=== PATIENT | female | born 1955 | race Caucasian/White ===

== ENCOUNTER 2022-06-27 21:55 | Inpatient (IN) | payer MEDICARE, OTHER, SELFPAY ==
[2022-06-27 21:56] VITALS: BP 141/97; PULSE 89; RESP 20; TEMP 36.2; O2SAT 95; BMI 33.4
[2022-06-27] MEDS: Ondansetron 4 MG/2 ML Vial IV (22:21)
[2022-06-27] MEDS: HYDROmorphone 1 MG/ML Syringe IV (22:22)
--- NOTE | 2022-06-27 22:30 | RAD_ITS ---
EXAM: XR CHEST, 1 VIEW CLINICAL INDICATION: Surgical clearance TECHNIQUE: Frontal view of the chest. This report was created using [employer] report generation technology. COMPARISON: None. FINDINGS: LUNGS AND PLEURAL SPACES: Unremarkable. No consolidation or edema. No pneumothorax. No effusion. HEART: Unremarkable. Cardiac silhouette not enlarged. MEDIASTINUM: Central airways and mediastinal contour are unremarkable. BONES/JOINTS: Unremarkable. SOFT TISSUES: Unremarkable. RAD/Chest 1 View (Portable) IMPRESSION: No radiographic evidence of acute cardiopulmonary disease. Electronically Signed: Denver Munoz MD at 23:25 EST ,
--- NOTE | 2022-06-27 22:30 | RAD_ITS ---
EXAM: XR RIGHT HIP WITH PELVIS WHEN PERFORMED, 1 VIEW CLINICAL INDICATION: pain TECHNIQUE: Frontal view of the right hip with pelvis when performed. This report was created using [employer] report generation technology. COMPARISON: None. FINDINGS: BONES/JOINTS: Acute fracture involving the right femoral neck with varus deformity. Alignment at the femoral acetabular joint is preserved. No destructive or sclerotic lesions. Note that overlapping bowel shadows may however obscure fine detail. Sacroiliac joint is unremarkable. No widening of the pubic symphysis. No other acute or healing fracture or malalignment. SOFT TISSUES: Soft swelling about the fracture site. VASCULATURE: Phleboliths and the left pelvis. RAD/HIP, UNI W/ Pelvis 2-3 Views IMPRESSION: Acute fracture involving the right femoral neck with varus deformity. Electronically Signed: Denver Munoz MD at 23:27 EST Reading Location ID and State: [facility] / [place] Tel , Service support ,
--- NOTE | 2022-06-27 22:35 | EDS_ITS ---
HPI History of Present Illness Chief Complaint: Fall Narrative Narrative: Patient is a 66-year-old female with past medical history of breast cancer. Roughly 30 minutes to 1 hour prior to arrival she was walking on cement around a pool when she slipped in a puddle of water and fell landing on her right hip. She denies striking her head or any loss of consciousness. She denies any history of bleeding disorder or blood thinner use. She states the fall was witnessed by family members. She states that they tried to help her up but secondary to the pain she was unable to stand and with concern for an underlying injury/fracture EMS was called to bring her in for evaluation. [facility] Medical History (Updated 06/28/22 @ 00:[address] Denver Zaragoza, DO) Breast CA HTN (hypertension) Mood disorder Obesity Home Medications alendronate 35 mg tablet 35 mg PO QWEEK 06/27/22 [History Last Taken Unknown] aspirin 81 mg tablet,delayed release 81 mg PO QHS 06/27/22 [History Last Taken Unknown] carbamazepine 200 mg tablet 200 mg PO DAILY 06/27/22 [History Last Taken Unknown] diltiazem HCl 30 mg tablet 30 mg PO BID 06/27/22 [History Last Taken Unknown] diphenhydramine HCl 50 mg capsule 50 mg PO QHS 06/27/22 [History Last Taken Unknown] lamotrigine 200 mg tablet 200 mg PO DAILY 06/27/22 [History Last Taken Unknown] Allergy/AdvReac Type Severity Reaction Status Date / Time clarithromycin [From Biaxin] Allergy PT UNABLE Verified 06/27/22 21:59 TO RESPOND-NEEDS F/U minocycline Allergy PT UNABLE Verified 06/27/22 21:59 TO RESPOND-NEEDS F/U Penicillins [PCN] Allergy PT UNABLE Verified 06/27/22 21:59 TO RESPOND-NEEDS F/U Surgical History (Updated 06/27/22 @ 22:02 by Van Luna) History of appendectomy History of hysterectomy Social History Smoking Status: Never smoker ROS ROS ED Constitutional Constitutional ED: Denies chills or fever(s) Eyes Eyes: Denies change in vision ENT ENT ED: Denies sore throat Cardiovascular Cardiovascular: Denies chest pain or palpitations Respiratory/Chest Respiratory/Chest: Denies cough or dyspnea Gastrointestinal Gastrointestinal: Denies abdominal pain, diarrhea, nausea or vomiting Genitourinary Genitourinary ED: Denies dysuria Musculoskeletal Musculoskeletal: Reports arthralgias and other Details: Positive right hip pain Integumentary Denies Abrasions or rash Neurologic Neurologic: Denies headache(s), paresthesias or weakness Hematologic/Lymphatic Hematologic/Lymphatic: Denies easy bleeding or easy bruising EXAM Physical Exam Const Vital Signs: 06/27/22 21:56 06/27/22 22:25 06/27/22 23:15 Temperature 97.2 F L Temperature Source Temporal Pulse Rate 89 84 Respiratory Rate 20 H 17 Respiratory Effort Normal Non-Labored Respiratory Depth Normal Respiratory Pattern Normal Blood Pressure 141/97 H 160/88 H Blood Pressure Mean 111 112 Pulse Ox 95 95 Oxygen Delivery Method Room Air Room Air Room Air Positive well nourished and well developed General Appearance ED: well developed HEENT Reports moist mucous membranes HEENT Narrative: Normocephalic atraumatic Eyes PERRL and EOMs intact bilaterally Neck supple Neck Narrative: No bony deformity or step-off of the cervical spine no midline pain with palpation Chest Wall palpation of chest normal Resp normal respiratory effort and clear to auscultation bilaterally Cardio regular rate and regular rhythm Rate: other Other Details: Radial pulses are plus 2 out of 4 bilaterally are equal and symmetric GI normal to inspection, nondistended, normoactive bowel sounds, non-tender, non- distended and no masses GI Narrative: No voluntary guarding or rigidity no pulsatile mass Auscultation: normoactive bowel sounds Palpation: soft Back/Spine Back/Spine Narrative: No bony deformity or step-off of the thoracic or lumbar spine no midline pain with palpation Extremity Extremity Narrative: Patient's pelvis is stable there is slight shortening and external rotation of the right leg compared to left with diffuse pain on palpation of the upper thigh/hip region. Active range of motion of the right leg as well as passive range of motion of the right leg is severely limited secondary to pain. Remainder the exam was normal Neuro oriented x3, CN's II-XII intact bilaterally and no sensory deficits noted Sensorium / Orientation: alert Psych mental status grossly normal Skin no rashes or lesions noted MDM MDM MDM Narrative Medical decision making narrative: Patient presented to the ER awake and alert with report of mechanical fall so there was no need for cardiac or syncope work-up. She did not strike her head or have any loss of consciousness and is not on any type of blood thinners there is no need for head CT. A hip x-ray was obtained to check for possible hip fracture and this was confirmed. Secondary to this patient had basic preoperative labs and EKG obtained. The case was discussed with orthopedics on- call and they do agree to follow the case but with the patient's age and medical history request admission to medicine. Therefore they were contacted and do agree to accept the patient. The patient is from out of town but does agree to stay at this facility to have her surgery performed and then request transfer back to her hometown if she needs rehab. This desire was reiterated to the orthopedic surgeon as well as medicine. However at this time as patient is showing a closed femoral neck fracture without signs of other trauma and she will need to have surgery to fix the fracture should be admitted to this hospital for further care History & Record Review Discussion w/independent historian: Patient and Family Lab Data Attestation: I reviewed the patient's lab results. Labs: Laboratory Results - last 24 hr 06/27/22 06/27/22 06/27/22 23:05 23:05 23:05 WBC 10.1 RBC 4.48 Hgb 14.0 Hct 40.9 MCV 91.3 MCH 31.3 MCHC 34.2 RDW Std Deviation 40.9 RDW Coeff of Nia 12.2 Plt Count 221 MPV 10.1 Immature Gran % (Auto) 1.100 H Neut % (Auto) 80.2 H Lymph % (Auto) 9.9 L [place] % (Auto) 8.0 Eos % (Auto) 0.4 Baso % (Auto) 0.4 Absolute Neuts (auto) 8.1 H Absolute Lymphs (auto) 1.00 Nucleated RBC % 0 PT 13.3 INR 1.0 APTT 27.3 Sodium 142 Potassium 3.8 Chloride 110 H Carbon Dioxide 24.0 Anion Gap 8 BUN 15 Creatinine 0.82 Estim Creat Clear Calc 62.32 Est GFR (MDRD) Af Amer 90 Est GFR (MDRD) Non-Af 74 BUN/Creatinine Ratio 18.3 Glucose 116 H Calcium 9.3 Radiography Diagnostic Testing: Clinical Impression(s) from Imaging Studies Chest X-Ray 06/27/22 22:30 IMPRESSION: No radiographic evidence of acute cardiopulmonary disease. Electronically Signed: Denver Munoz MD at 23:25 EST , Hip/Pelvis X-Ray 06/27/22 22:30 IMPRESSION: Acute fracture involving the right femoral neck with varus deformity. Electronically Signed: Denver Munoz MD at 23:27 EST , 1 view chest x-ray as interpreted by the emergency medicine physician reveals no acute infiltrate pneumothorax or pleural effusion Right hip x-ray with 1 view pelvis as interpreted by the emergency medicine physician reveals an acute femoral neck fracture with displacement. Discharge Plan Triage Chief Complaint: Fall ED Provider: Denver Zaragoza Dx/Rx/DC Orders Clinical Impression: Closed right hip fracture, Accidental fall, History of breast cancer Primary Care Provider: Care Physician,No Primary Disposition Disposition: Acute Care [facility]
[2022-06-27] MEDS: 0.9% Normal Saline 1,000 ML 150 ML IV (23:08)
[2022-06-27] MEDS: HYDROmorphone 0.5 MG/0.5 ML SYRINGE IV (23:09)
[2022-06-27 23:15] VITALS: BP 160/88; PULSE 84; RESP 17; O2SAT 95
[2022-06-27 23:28] LABS: Prothrombin Time (Protime)PT. 13.3 SECONDS (11.7-14.9)
[2022-06-27 23:29] LABS: Partial Thromboplast Time 27.3 Seconds (24.1-36.2)
--- NOTE | 2022-06-27 23:45 | PCM.HP.STD ---
HPI - General General Date of Admission: 06/28/22 Date of Service: 06/27/22 Chief Complaint: Fall, R hip pain. HPI Narrative The patient is a 66 y/o F w/ PMHx: Obesity, HTN, Hx Breast CA, Mood disorder unclear specific type who presents to the [facility] ED on 06/27/22 with history of mechanical fall noted to have occurred approximately 1 hour prior to ED arrival while walking on cement around the pool unfortunately slipping and landing on her right hip with no loss of consciousness or any head trauma with the fall witnessed by family immediately attempting to help her get up but she could not stand secondary to pain elicited to the right lower extremity prompting them to call EMS to bring her to the ED for evaluation. Patient reports that as long she does not move pain is controlled however with any activity even slight pain is severe sharp 10 out of 10. Work-up in the ED included T97.2, heart rate 89, BP 141/97, respiratory rate 20, 95% on room air, chest x-ray with no acute cardiopulmonary findings, plain film of the right hip with femoral neck fracture with varus deformity, EKG with SR without acute findings nonspecific changes but difficult secondary to artifact as patient was moving significantly shaking secondary to pain, CBC, coags, BMP pending. In the ED patient ministered normal saline 1 L, Zofran 4 mg IV x1, Dilaudid 1 mg IV x1 and 0.5 mg IV x1, NS MIVF. ED discussed case with Dr. Haque with planned OR potentially 11:30 AM. [facility] Medical History Breast CA HTN (hypertension) Mood disorder Obesity Home Medications alendronate 35 mg tablet 35 mg PO QWEEK 06/27/22 [History Last Taken Unknown] aspirin 81 mg tablet,delayed release 81 mg PO QHS 06/27/22 [History Last Taken Unknown] carbamazepine 200 mg tablet 200 mg PO BID Check with primary doctor 06/27/22 [History Last Taken Unknown] diltiazem HCl 30 mg tablet 30 mg PO BID 06/27/22 [History Last Taken Unknown] diphenhydramine HCl 50 mg capsule 50 mg PO QHS 06/27/22 [History Last Taken Unknown] lamotrigine 200 mg tablet 200 mg PO DAILY 06/27/22 [History Last Taken Unknown] Allergy/AdvReac Type Severity Reaction Status Date / Time clarithromycin [From Biaxin] Allergy PT UNABLE Verified 06/27/22 21:59 TO RESPOND-NEEDS F/U minocycline Allergy PT UNABLE Verified 06/27/22 21:59 TO RESPOND-NEEDS F/U Penicillins [PCN] Allergy PT UNABLE Verified 06/27/22 21:59 TO RESPOND-NEEDS F/U Family History (Updated 06/28/22 @ 00:[address] Gifty Montalvo MD) Mother Heart disease Hypertension CHF (congestive heart failure) Bradycardia s/p pacemaker. Father CAD (coronary artery disease) Hypertension Heart disease Surgical History (Updated 06/28/22 @ 00:[address] Gifty Montalvo MD) H/O neck surgery History of appendectomy History of breast reconstruction History of hysterectomy Hx of right mastectomy Social History (Updated 06/28/22 @ 00:[address] Gifty Montalvo MD) household members: spouse Smoking Status: Never smoker alcohol intake: never substance use type: does not use ROS ROS Narrative Admission Review of Systems: CONSTITUTIONAL: No weight loss, fever, chills, + weakness or fatigue. HEENT: Eyes: No visual loss, blurred vision, double vision or yellow sclerae. Ears, Nose, Throat: No hearing loss, sneezing, congestion, runny nose or sore throat. SKIN: + Abrasions s/p fall. CARDIOVASCULAR: No chest pain, chest pressure or chest discomfort, palpitations, edema, orthopnea, syncopal events. RESPIRATORY: No shortness of breath, cough or sputum, wheezing, hemoptysis. GASTROINTESTINAL: No anorexia, nausea, vomiting or diarrhea, abdominal pain, melena, BRBPR. GENITOURINARY: No dysuria, frequency, urgency or retention. NEUROLOGICAL: No headache, dizziness, syncope, paralysis, ataxia, numbness or tingling in the extremities, focal weakness, change in bowel or bladder control, seizure. MUSCULOSKELETAL: + muscle, back pain, joint pain or stiffness. HEMATOLOGIC: No anemia, bleeding or bruising. LYMPHATICS: No enlarged nodes. No history of splenectomy. PSYCHIATRIC: + history of depression or anxiety. ENDOCRINOLOGIC: No reports of sweating, cold or heat intolerance. No polyuria or polydipsia. ALLERGIES: No history of asthma, hives, eczema or rhinitis. Vital Signs Vital Signs Vital Signs: 06/27/22 21:56 06/27/22 22:25 06/27/22 23:15 Temperature 97.2 F L Temperature Source Temporal Pulse Rate 89 84 Respiratory Rate 20 H 17 Respiratory Effort Normal Non-Labored Respiratory Depth Normal Respiratory Pattern Normal Blood Pressure 141/97 H 160/88 H Blood Pressure Mean 111 112 Pulse Ox 95 95 Oxygen Delivery Method Room Air Room Air Room Air Weight Weight: 207 lb 3.752 oz Body Mass Index (BMI) 33.4 Physical Exam Narrative Physical Examination: General: Awake, alert, oriented x 3 and cooperative, laying in the ED bed, fatigued, uncomfortable appearing, anxious. Skin: Normal color, normal turgor, no icterus, no cyanosis. HEENT: AT/NC, EOMI, PERRLA, mildly dry MM, no carotid bruits or JVD noted. Lungs: CTA bilaterally, moderate effort, mild decrease BL bases, no rales, ronchi or wheezing. Heart: Regular rate and rhythm; no gallop, rub audible. Abdomen: Soft, obese, NTTP, ND, normal BS, no HSM. Extremities: No cyanosis, no clubbing, status post mechanical fall with right hip fracture, peripheral pulses intact, slight right lower extremity shortening and external rotation Neurological: Patient awake, alert, oriented as noted, cognitive function intact; pupils equally reactive to light and accommodation, cranial nerves II-XII grossly normal, moving all 4 extremities except expected significant limitation to right lower extremity movement given fall with hip fracture, strength accordingly severely globally decreased. Psychiatric: Affect appears uncomfortable, anxious, no acute evidence of depressive feelings. Results Lab / Micro Data Result Diagrams: 06/27/22 23:05 06/27/22 23:05 Labs: Laboratory Results - last 24 hr 06/27/22 23:05: PT 13.3, INR 1.0, APTT 27.3 Radiology Impression Chest X-Ray 06/27/22 22:30 IMPRESSION: No radiographic evidence of acute cardiopulmonary disease. Electronically Signed: Denver Munoz MD at 23:25 EST , Hip/Pelvis X-Ray 06/27/22 22:30 IMPRESSION: Acute fracture involving the right femoral neck with varus deformity. Electronically Signed: Denver Munoz MD at 23:27 EST Reading Location ID and State: [facility] [place] / [place] Tel , Service support , Assessment & Plan Assessment/Plan (1) Closed right hip fracture: PLAN: Plan The patient is a 66 y/o F w/ PMHx: Obesity, HTN, Hx Breast CA, Mood disorder unclear specific type who presents to the [facility] ED on 06/27/22 with history of mechanical fall noted to have occurred approximately 1 hour prior to ED arrival while walking on cement around the pool unfortunately slipping and landing on her right hip with no loss of consciousness or any head trauma with the fall witnessed by family immediately attempting to help her get up but she could not stand secondary to pain elicited to the right lower extremity prompting them to call EMS to bring her to the ED for evaluation. #1. General debility, right hip pain s/p mechanical fall w/ right femoral neck fracture with varus deformity: Plain film noting right femoral neck fracture. Orthopedic surgery consulted from ED. Will admit to [facility], maintain NPO after midnight, continue gentle IVFs, UA, UCx, mtz placement, monitor I/Os, frequent positioning, fall precautions, type and screen, pain, anti-emetic regimen. PT/OT following operative intervention. CM consulted for discharge planning. Per NSQIP for patient medical history patient with below average risk for complication perioperatively therefore agree with progression to OR once CBC, BMP, preoperative EKG obtained for assessment if no acute findings. #2. Hypertension: Continue home regimen including diltiazem, PRN hydralazine. #3. Mood disorder, unclear specific type: We will continue patient home carbamazepine and lamotrigine regimen, encourage continued outpatient follow-up and counseling. #4. History of breast cancer, left sided, unclear specific type: Patient with history of left-sided breast cancer diagnosed in 2015 status post mastectomy with reconstruction as well as chemotherapy and radiation, considered in remission. #5. Obesity: Weight loss and lifestyle changes encouraged. #6. DVT prophylaxis: SCDs, holding chemoprophylaxis for operative intervention. #7. CODE status: Patient HCPOA and living will are not in place. Full Code. Admission Evaluation Time spent evaluating chart, patient history, patient evaluation, care planning and discussion with specialists: 75 minutes. Charges/Coding Visit Charges Inpatient E&M: 39429 Init Hosp L3
[2022-06-27 23:50] LABS: Absolute Neutrophil Count 8.1 X10^3/uL (2.0-7.7); Basophil# 0.04 X10^3/uL; Basophil% 0.4 % (0-1); Eosinophil# 0.04 X10^3/uL; Eosinophils% 0.4 % (0-5); Hematocrit 40.9 % (37-47); Lymphocyte % 9.9 % (19-41); Mean Corp Hgb Conc 34.2 g/dL (32-36); Mean Corpuscular Hgb 31.3 pg (27.0-32.0); Mean Corpuscular Volume 91.3 fL (81-99); Mean Platelet Vol. 10.1 fl (6.2-12.0); Monocyte# 0.81 X10^3/uL; NRBC Flagged by Analyzer 0 % (0-5); Neutrophil # 8.09 X10^3/uL (2.7-7.7); Neutrophil % 80.2 % (47-70); Platelet Count 221 K/mm3 (150-450); RBC Distribution Width CV 12.2 % (11.6-14.6); RBC Distribution Width SD 40.9 fl (35.1-43.9); Red Blood Count 4.48 M/mm3 (4.2-5.4); White Blood Count 10.1 K/mm3 (4.4-11.0)
[2022-06-28] VITALS (13 sets, daily range): BP systolic 119–153; BP diastolic 65–80; PULSE 74–92; RESP 16–18; TEMP 36.2–37.4; O2SAT 92–98; BMI 33.3; BMI 34.0
--- NOTE | 2022-06-28 | FEM_PTH ---
PATIENT: CHARO MCKAY LOC: MS3 U#:[id number] AGE/SX: 66/F ROOM: KS305 RE06/27/[address]: Dr. Pema Rod DO : 1955 BED: 1 DIS: 07/02/2022 SPEC #: [id number] RECD: 06/29/22 08:55 STATUS: THIERNO REQ #: [id number] ALANNAH: 06/28/22 00:[address]: Aric Haque DEPT: SURGICAL PATHOLOGY RECD BY: Yasmine Lea ENTERED: 06/29/22 09:28 SP TYPE: FEM HEAD OTHR DR: MD Dr. Pema Ulloa DO Dr. Nicholas Spittle, DO Dr. Prakash Chand, MD No Primary Care Phys Tissues: Femoral region, NOS Procedures: Decalcification bone/plaque Surgery Specimen Level IV Comments: @ Ordering doctor for DEC edited from to @ dre SWAN at 06/29/22 151 @ Ordering doctor for SUV edited from to @ by SOSA at 06/29/22 1514 @ Submitting doctor edited from to @ dre SWAN at 06/29/22 1514 HEADER OPERATION: Right total hip replacement PRE-OP DIAGNOSIS: Closed right hip fracture TISSUE SUBMITTED: Right femoral head and reamings MICROSCOPIC DIAGNOSIS Right femoral head and reamings, total hip replacement/resection: Femoral head and detached pieces of bone with focal area of hemorrhage, clinically hip fracture. KEATON:zain 07/02/2022 MICROSCOPIC DESCRIPTION Slides are reviewed. GROSS DESCRIPTION Received is one container labeled with the patient's name and designated right femoral head and reamings. The specimen consists of a logan femoral head measuring 4.0 x 4.0 x 3.5 cm. The articular surface is smooth. Resection margin is irregular and hemorrhagic. Also present in the specimen container are multiple detached fragments of soft tissue mixed with bone reaming and detached pieces of bone measuring in aggregate 9.0 x 9.0 x 2.0 cm. [employer] sections are submitted in three cassettes as follows: 1 - soft tissue, 2?- detached pieces of bone, 3 - femoral head. Cassettes 2 and 3 are submitted after decalcification. / KEATON:zain 06/29/2022 TC:5 [facility]: [id number], [id number]
[2022-06-28 00:02] LABS: Anion Gap 8 (5-15); BUN 15 mg/dL (7-18); BUN/Creat Ratio 18.3 RATIO (10-20); Calcium,Total 9.3 mg/dL (8.5-10.1); Chloride 110 mmol/L (98-107); Creatinine, Serum 0.82 mg/dL (0.55-1.02); EST Glomerular Filtration Rate 74 mL/min (>60); Est Glom Filt Rate - Afr Amer 90 mL/min (>60); Estimated Creatinine Clearance 62.32 ml/min; Glucose 116 mg/dL (74-106); Potassium 3.8 mmol/L (3.5-5.1); Sodium Level 142 mmol/L (136-145)
[2022-06-28] MEDS: HYDROmorphone 0.5 MG/0.5 ML SYRINGE IV ×2 (00:15→00:50)
[2022-06-28 00:26] LABS: Magnesium 2.2 mg/dL (1.6-2.6)
[2022-06-28 01:45] LABS: Red Blood Cells-Urine 0 SEEN /hpf (0-5)
[2022-06-28 01:57] LABS: Color, Urine Yellow (Yellow); Glucose, Dipstick Normal (Normal); Ketone-Dipstick Negative (Negative); Leukocyte Esterase-Dipstick 25 /ul (Negative); Nitrite-Dipstick Negative (Negative); Occult Blood-Urine Negative /ul (Negative); Protein-Dipstick 30 mg/dl (Negative); Specific Gravity, Urine 1.015 (1.002-1.030); Urine Bilirubin Dipstick Negative (Negative); Urine Clarity Clear (Clear); Urine Urobilinogen Normal (Normal); Urine pH 6.5 (5.0 - 8.0)
[2022-06-28 03:02] LABS: Bacteria RARE /hpf (None Seen); Mucous, Urine 1+ /hpf (<or=2+); Squamous Epithelial Cells - UA 0-5 SEEN /hpf (5-10); White Blood Cells 0-5 SEEN /hpf (0-5)
[2022-06-28] MEDS: dilTIAZem 30 MG Tablet PO ×2 (03:09→22:13)
[2022-06-28] MEDS: Famotidine 20 MG Tablet PO ×2 (03:10→22:12)
[2022-06-28] MEDS: DiphenhydrAMINE 25 MG Capsule 50 MG PO ×2 (03:10→22:12)
[2022-06-28 05:02] LABS: Absolute Lymphocyte Count 1.01 X10^3/uL (0.83-4.51); Absolute Neutrophil Count 7.3 X10^3/uL (2.0-7.7); Basophil# 0.04 X10^3/uL; Basophil% 0.4 % (0-1); Eosinophil# 0.04 X10^3/uL; Eosinophils% 0.4 % (0-5); Hematocrit 37.5 % (37-47); Hemoglobin 12.7 g/dL (12.0-15.0); Lymphocyte # 1.01 X10^3/ul (0.83-4.51); Lymphocyte % 10.9 % (19-41); Mean Corp Hgb Conc 33.9 g/dL (32-36); Mean Corpuscular Hgb 31.6 pg (27.0-32.0); Mean Corpuscular Volume 93.3 fL (81-99); Mean Platelet Vol. 9.7 fl (6.2-12.0); Monocyte# 0.83 X10^3/uL; NRBC Flagged by Analyzer 0 % (0-5); Neutrophil # 7.27 X10^3/uL (2.7-7.7); Neutrophil % 78.9 % (47-70); Platelet Count 190 K/mm3 (150-450); RBC Distribution Width CV 12.3 % (11.6-14.6); RBC Distribution Width SD 42.4 fl (35.1-43.9); Red Blood Count 4.02 M/mm3 (4.2-5.4); White Blood Count 9.2 K/mm3 (4.4-11.0)
[2022-06-28 05:27] LABS: ALB/GLOB Ratio 1.5 RATIO (0.9-2.4); AST(SGOT) 28 U/L (15-37); Alanine Aminotransfer ALT/SGPT 33 U/L (13-56); Albumin, Serum 3.7 g/dL (3.2-5.0); Alkaline Phosphatase 72 U/L (45-117); Anion Gap 8 (5-15); BUN 14 mg/dL (7-18); BUN/Creat Ratio 16.8 RATIO (10-20); Calcium,Total 8.8 mg/dL (8.5-10.1); Chloride 111 mmol/L (98-107); Creatinine, Serum 0.83 mg/dL (0.55-1.02); EST Glomerular Filtration Rate 72 mL/min (>60); Est Glom Filt Rate - Afr Amer 88 mL/min (>60); Estimated Creatinine Clearance 61.57 ml/min; Globulin 2.5 g/dL (2.2-4.2); Glucose 124 mg/dL (74-106); Potassium 3.8 mmol/L (3.5-5.1); Protein, Total 6.2 g/dL (6.4-8.2); Sodium Level 140 mmol/L (136-145)
[2022-06-28] MEDS: Morphine 4 MG/ML Syringe IV ×4 (05:39→20:57)
--- NOTE | 2022-06-28 06:03 | CON.PCM.OR_ITS ---
HPI Consult Data Date of Consult: 06/28/22 HPI Narrative HPI Narrative: CHARO MCKAY, is a 66 F with past medical history significant for obesity, hypertension, remote history of breast cancer in remission, who presents to [facility] emergency department after a mechanical slip and fall on a wet floor while she was visiting the area decided to go down to the pool area. Patient landed on her right side. Denies any head injury or loss conscio usness, neck injury. She denies any antecedent right hip or groin pain. She was unable to bear weight due to pain and was brought by EMS to [facility] emergency department. X-rays revealed a displaced right femoral neck fracture. I was consulted from the emergency department. Patient was subsequently admitted under the service of the hospitalist service. At time my examination, patient denies any fevers, chills, nausea or vomiting, chest pain or shortness of breath. She is a community ambulator without assistive device. Patient lives at home with her . Patient is retired. [facility] Medical History Breast CA HTN (hypertension) Mood disorder Obesity Home Medications alendronate 35 mg tablet 35 mg PO bone health 06/27/22 [History Last Taken 06/27/22 09:30] aspirin 81 mg tablet,delayed release 81 mg PO QHS heart health 06/27/22 [History Last Taken 06/26/22] carbamazepine 200 mg tablet 200 mg PO DAILY Check with primary doctor 06/27/22 [History Last Taken 06/27/22] diltiazem HCl 30 mg tablet 30 mg PO BID esophagus 06/27/22 [History Last Taken Unknown] diphenhydramine HCl 50 mg capsule 50 mg PO QHS sleep 06/27/22 [History Last Taken 06/26/22] lamotrigine 200 mg tablet 200 mg PO DAILY mood 06/27/22 [History Last Taken 06/26/22] ramelteon 8 mg tablet 8 mg PO QHS sleep 06/28/22 [History Last Taken 06/26/22] Allergy/AdvReac Type Severity Reaction Status Date / Time clarithromycin [From Biaxin] Allergy Rash Verified 06/28/22 01:02 minocycline Allergy Rash Verified 06/28/22 01:02 Penicillins [PCN] Allergy Rash Verified 06/28/22 01:02 Family History Mother Heart disease Hypertension CHF (congestive heart failure) Bradycardia s/p pacemaker. Father CAD (coronary artery disease) Hypertension Heart disease Surgical History H/O mastectomy H/O neck surgery H/O total vaginal hysterectomy History of appendectomy History of breast reconstruction History of hysterectomy Social History household members: spouse Smoking Status: Never smoker alcohol intake: never substance use type: does not use ROS ROS Narrative 12 point review of systems obtained, negative unless otherwise noted in HPI. Vital Signs Vital Signs Vital Signs: 06/27/22 21:56 06/27/22 22:25 06/27/22 23:15 Temperature 97.2 F L Temperature Source Temporal Pulse Rate 89 84 Respiratory Rate 20 H 17 Respiratory Effort Normal Non-Labored Respiratory Depth Normal Respiratory Pattern Normal Blood Pressure 141/97 H 160/88 H Blood Pressure Mean 111 112 Blood Pressure Source Blood Pressure Position Blood Pressure Location Pulse Ox 95 95 Oxygen Delivery Method Room Air Room Air Room Air 06/28/22 00:30 06/28/22 00:30 06/28/22 01:47 Temperature 97.2 F L 98.2 F Temperature Source Temporal Oral Pulse Rate 75 86 Respiratory Rate 17 18 Respiratory Effort Normal Non-Labored Respiratory Depth Normal Respiratory Pattern Normal Blood Pressure 133/72 H 153/80 H Blood Pressure Mean 92 104 Blood Pressure Source Monitor Blood Pressure Position Semi-Fowlers Blood Pressure Location Right Arm Pulse Ox 96 97 Oxygen Delivery Method Room Air Room Air Room Air 06/28/22 01:49 06/28/22 05:42 Temperature 98.2 F 99.3 F H Temperature Source Oral Oral Pulse Rate 86 84 Respiratory Rate 18 18 Respiratory Effort Respiratory Depth Respiratory Pattern Blood Pressure 153/80 H 144/65 H Blood Pressure Mean 104 91 Blood Pressure Source Monitor Blood Pressure Position Supine Blood Pressure Location Right Arm Pulse Ox 97 98 Oxygen Delivery Method Room Air Room Air Weight Weight: 206 lb 12.697 oz Body Mass Index (BMI) 33.3 Physical Exam Narrative General -A&Ox3, NAD, appears stated age. Vital signs stable, afebrile. Respiratory -normal work of breathing, no intercostal retractions. CV -pulses regular, brisk capillary refill ?4 limbs. Abdomen-soft, nontender, nondistended. No guarding, rigidity, rebound tend erness. Musculoskeletal/neurologic -full range of motion nontender throughout bilateral upper extremities, left lower extremity with full sensation and strength in all dermatomes and myotomes. No midline cervical tenderness. Right lower extremity-no obvious deformity. Pain with logroll of the right lower extremity. Nontender throughout the right knee femoral shaft, tibial shaft and right foot/ankle. Brisk capillary refill. Sensation intact light touch L3-S1 dermatomes. DF, PF, EHL intact. DP, PT 2+. Pelvis is stable, nontender. Skin is intact without lacerations, abrasions. No ecchymosis noted. Lab / Micro Data Attestation: I reviewed the patient's lab results. Result Diagrams: 06/28/22 04:53 06/28/22 04:53 Labs: Laboratory Results - last 24 hr 06/27/22 23:05: WBC 10.1, RBC 4.48, Hgb 14.0, Hct 40.9, MCV 91.3, MCH 31.3, MCHC 34.2, RDW Std Deviation 40.9, RDW Coeff of Nia 12.2, Plt Count 221, MPV 10.1, Immature Gran % (Auto) 1.100 H, Neut % (Auto) 80.2 H, Lymph % (Auto) 9.9 L, [place] % (Auto) 8.0, Eos % (Auto) 0.4, Baso % (Auto) 0.4, Absolute Neuts (auto) 8.1 H, Absolute Lymphs (auto) 1.00, Nucleated RBC % 0 06/27/22 23:05: PT 13.3, INR 1.0, APTT 27.3 06/27/22 23:05: Sodium 142, Potassium 3.8, Chloride 110 H, Carbon Dioxide 24.0, Anion Gap 8, BUN 15, Creatinine 0.82, Estim Creat Clear Calc 62.32, Est GFR (MDRD) Af Amer 90, Est GFR (MDRD) Non-Af 74, BUN/Creatinine Ratio 18.3, Glucose 116 H, Calcium 9.3 06/27/22 23:05: Magnesium 2.2 03/12/23 01:20: Urine Color Yellow, Urine Clarity Clear, Urine pH 6.5, Ur Specific [place] 1.015, Urine Protein 30 H, Urine Glucose (UA) Normal, Urine Ketones Negative, Urine Occult Blood Negative, Urine Nitrite Negative, Urine Bilirubin Negative, Urine Urobilinogen Normal, Ur Leukocyte Esterase 25 H, Urine RBC 0 SEEN, Urine WBC 0-5 SEEN, Ur Squamous Epith Cells 0-5 SEEN, Urine Bacteria RARE, Urine Mucus 1+ 06/28/22 04:53: WBC 9.2, RBC 4.02 L, Hgb 12.7, Hct 37.5, MCV 93.3, MCH 31.6, MCHC 33.9, RDW Std Deviation 42.4, RDW Coeff of Nia 12.3, Plt Count 190, MPV 9.7, Immature Gran % (Auto) 0.400, Neut % (Auto) 78.9 H, Lymph % (Auto) 10.9 L, [place] % (Auto) 9.0, Eos % (Auto) 0.4, Baso % (Auto) 0.4, Absolute Neuts (auto) 7.3, Absolute Lymphs (auto) 1.01, Nucleated RBC % 0 06/28/22 04:53: Sodium 140, Potassium 3.8, Chloride 111 H, Carbon Dioxide 21.0, Anion Gap 8, BUN 14, Creatinine 0.83, Estim Creat Clear Calc 61.57, Est GFR (MDRD) Af Amer 88, Est GFR (MDRD) Non-Af 72, BUN/Creatinine Ratio 16.8, Glucose 124 H, Calcium 8.8, Total Bilirubin 0.30, AST 28, ALT 33, Alkaline Phosphatase 72, Total Protein 6.2 L, Albumin 3.7, Globulin 2.5, Albumin/Globulin Ratio 1.5 Radiology Impression Chest X-Ray 06/27/22 22:30 IMPRESSION: No radiographic evidence of acute cardiopulmonary disease. Electronically Signed: Denver Munoz MD at 23:25 EST , Hip/Pelvis X-Ray 06/27/22 22:30 IMPRESSION: Acute fracture involving the right femoral neck with varus deformity. Electronically Signed: Denver Munoz MD at 23:27 EST , Assessment & Plan Assessment/Plan (1) Closed right hip fracture: PLAN: Patient sustained a right displaced femoral neck fracture -Closed, neurovascularly intact -Isolated injury -Recommending surgical intervention in the form of right total hip arthroplasty -I discussed the procedure-its risks, benefits and alternative. Risks include but are not limited to bleeding, infection, loss of life or limb, risk of anesthesia, persistent pain or disability, instability, need for additional surgery, leg length discrepancy, failure of orthopedic hardware, neurovascular injury, DVT or PE. Patient expressed understanding these risks and wished proceed with surgery. -Maintenance IV fluids, clear liquid diet after midnight n.p.o. at 2 hours prior to surgery -Type and screen -2 g Ancef, TXA on-call to the OR -Bedrest, heel protectors -Plan to proceed with surgery later today when OR becomes available Thank you for this consultation.
[2022-06-28] MEDS: 0.9% Normal Saline 1,000 ML 100 ML IV (07:54)
--- NOTE | 2022-06-28 08:13 | PN.HOSP_ITS ---
Reason for Visit Reason for Visit: Diagnoses Fracture of unspecified part of neck of right femur, initial encounter for clos ed fracture (06/27/22) Subjective Subjective Perioperative follow-up for right hip fracture. Patient has severe pain 10/10 over right hip region and crying. Just had morphine. Objective Data Objective Data Vital Signs: Vital Signs Temp Pulse Resp BP Pulse Ox O2 Del Method 99.3 F H 84 18 144/65 H 98 Room Air 06/28/22 05:42 06/28/22 05:42 06/28/22 05:42 06/28/22 05:42 06/28/22 06:54 06/28/22 06:54 Oxygen Delivery Method Room Air Weight: 211 lb 6.773 oz Body Mass Index (BMI) 34.0 Intake & Output: Intake and Output for Last 24 Hours 06/26/22 06/27/22 06/29/22 23:59 23:59 00:59 Intake Total 1030 / 1030 Output Total 275 / 275 Balance 755 / 755 Lab / Micro Data Result Diagrams: 06/28/22 04:53 06/28/22 04:53 Labs: Laboratory Results - last 24 hr 06/27/22 23:05: WBC 10.1, RBC 4.48, Hgb 14.0, Hct 40.9, MCV 91.3, MCH 31.3, MCHC 34.2, RDW Std Deviation 40.9, RDW Coeff of Nia 12.2, Plt Count 221, MPV 10.1, Immature Gran % (Auto) 1.100 H, Neut % (Auto) 80.2 H, Lymph % (Auto) 9.9 L, [place] % (Auto) 8.0, Eos % (Auto) 0.4, Baso % (Auto) 0.4, Absolute Neuts (auto) 8.1 H, Absolute Lymphs (auto) 1.00, Nucleated RBC % 0 06/27/22 23:05: PT 13.3, INR 1.0, APTT 27.3 06/27/22 23:05: Sodium 142, Potassium 3.8, Chloride 110 H, Carbon Dioxide 24.0, Anion Gap 8, BUN 15, Creatinine 0.82, Estim Creat Clear Calc 62.32, Est GFR (MDRD) Af Amer 90, Est GFR (MDRD) Non-Af 74, BUN/Creatinine Ratio 18.3, Glucose 116 H, Calcium 9.3 06/27/22 23:05: Magnesium 2.2 06/28/22 01:20: Urine Color Yellow, Urine Clarity Clear, Urine pH 6.5, Ur Specific [place] 1.015, Urine Protein 30 H, Urine Glucose (UA) Normal, Urine Ketones Negative, Urine Occult Blood Negative, Urine Nitrite Negative, Urine Bilirubin Negative, Urine Urobilinogen Normal, Ur Leukocyte Esterase 25 H, Urine RBC 0 SEEN, Urine WBC 0-5 SEEN, Ur Squamous Epith Cells 0-5 SEEN, Urine Bacteria RARE, Urine Mucus 1+ 06/28/22 04:53: Blood Type A NEGATIVE, Antibody Screen NEGATIVE 06/28/22 04:53: WBC 9.2, RBC 4.02 L, Hgb 12.7, Hct 37.5, MCV 93.3, MCH 31.6, MCHC 33.9, RDW Std Deviation 42.4, RDW Coeff of Nia 12.3, Plt Count 190, MPV 9 .7, Immature Gran % (Auto) 0.400, Neut % (Auto) 78.9 H, Lymph % (Auto) 10.9 L, [place] % (Auto) 9.0, Eos % (Auto) 0.4, Baso % (Auto) 0.4, Absolute Neuts (auto) 7.3, Absolute Lymphs (auto) 1.01, Nucleated RBC % 0 06/28/22 04:53: Sodium 140, Potassium 3.8, Chloride 111 H, Carbon Dioxide 21.0, Anion Gap 8, BUN 14, Creatinine 0.83, Estim Creat Clear Calc 61.57, Est GFR (MDRD) Af Amer 88, Est GFR (MDRD) Non-Af 72, BUN/Creatinine Ratio 16.8, Glucose 124 H, Calcium 8.8, Total Bilirubin 0.30, AST 28, ALT 33, Alkaline Phosphatase 72, Total Protein 6.2 L, Albumin 3.7, Globulin 2.5, Albumin/Globulin Ratio 1.5 Radiography Diagnostic Testing: Radiology Impression Chest X-Ray 06/27/22 22:30 IMPRESSION: No radiographic evidence of acute cardiopulmonary disease. Electronically Signed: Denver Munoz MD at 23:25 EST , Hip/Pelvis X-Ray 06/27/22 22:30 IMPRESSION: Acute fracture involving the right femoral neck with varus deformity. Electronically Signed: Denver Munoz MD at 23:27 EST Reading Location ID and State: [address] [place] [address] Tel , Service support , Physical Exam Narrative Patient complaining of severe pain 10 out of 10 over right hip region. It is l ocalized without radiation to knee or flank. Patient denies prior cardiac, pulmonary or stroke or GI disease. Physical exam General: Alert, Oriented x3, Cooperative HEENT: Atraumatic, PERRLA, EOMI, Normocephalic Oral: Oral mucosa moist. No Gingival or Mucosal Lesions/ Ulcerations Neck: Supple, No JVD, Negative Carotid Bruits Lungs: Air entry diminished in bilateral lung bases. No crepitation/rhonchi Cardiovascular: Regular rate, Regular Rhythm, Normal S1, Normal S2, No murmurs Abdomen: Bowel Sounds Present, Soft, Non Tender, Non-Distended : No renal angle tenderness. No suprapubic tenderness. Extremities: No edema, Capillary Refill Less than 3 Seconds Skin: No rashes, No breakdown Musculoskeletal: Severe tenderness over right groin region/hip joint. RLE externally rotated and abducted. No swelling or hematoma over right hip region. Neurological: Cranial nerves II-XII grossly intact, DTR 2+/4 and Symmetrical, Neuro grossly intact Psych/Mental Status: Flat affect, painful. Assessment & Plan Assessment/Plan (1) Closed right hip fracture: PLAN: Plan The patient is a 66 y/o F slipping puddle of water and fall, landing on right hip about 1 hour prior to ED arrival. No LOC. Family members could not make her stand up due to severe pain leading to #1. General debility, closed right femoral neck fracture with varus deformity: [facility] He pelvics x-ray shows right femoral neck fracture with varus deformity. Patient evaluated by orthopedic surgeon. Neurovascular bundle intact. Recommended right total hip arthroplasty. Plan for OR today. Labs reviewed. CBC within normal limit. Electrolytes in normal limit except chloride 111. Magnesium 2.2 normal. Liver chemistry normal limit. UA WBC 0-5, LE 25 normal. Nitrite negative. Denies burning micturition dysuria or new LUT symptoms. IV fluid changed to Ringer lactate at 50 mill per hour. Per NSQIP for patient medical history patient with below average risk for complication perioperatively therefore agree with progression to surgery. Twelve-lead EKG individually reviewed shows normal sinus rhythm at 80 bpm, QTc 447 ms. QRS [address]-T changes. No signs and symptoms of ACS #2. Hypertension: Continue home regimen including diltiazem, PRN hydralazine. #3. Mood disorder, unclear specific type: We will continue patient home carbamazepine and lamotrigine regimen, encourage continued outpatient follow-up and counseling. #4. History of breast cancer, left sided, unclear specific type: Patient with history of left-sided breast cancer diagnosed in 2014 status post mastectomy with reconstruction as well as chemotherapy and radiation, considered in remission. #5. Obesity: Weight loss and lifestyle changes encouraged. #6. DVT prophylaxis: SCDs, holding chemoprophylaxis for operative intervention. #7. CODE status: Patient HCPOA and living will are not in place. Full Code. Laboratory Results 06/27/22 23:05: WBC 10.1, RBC 4.48, Hgb 14.0, Hct 40.9, MCV 91.3, MCH 31.3, MCHC 34.2, RDW Std Deviation 40.9, RDW Coeff of Nia 12.2, Plt Count 221, MPV 10.1, Immature Gran % (Auto) 1.100 H, Neut % (Auto) 80.2 H, Lymph % (Auto) 9.9 L, [place] % (Auto) 8.0, Eos % (Auto) 0.4, Baso % (Auto) 0.4, Absolute Neuts (auto) 8.1 H, Absolute Lymphs (auto) 1.00, Nucleated RBC % 0 06/27/22 23:05: PT 13.3, INR 1.0, APTT 27.3 06/27/22 23:05: Sodium 142, Potassium 3.8, Chloride 110 H, Carbon Dioxide 24.0, Anion Gap 8, BUN 15, Creatinine 0.82, Estim Creat Clear Calc 62.32, Est GFR (MDRD) Af Amer 90, Est GFR (MDRD) Non-Af 74, BUN/Creatinine Ratio 18.3, Glucose 116 H, Calcium 9.3 06/27/22 23:05: Magnesium 2.2 06/28/22 01:20: Urine Color Yellow, Urine Clarity Clear, Urine pH 6.5, Ur Specific [place] 1.015, Urine Protein 30 H, Urine Glucose (UA) Normal, Urine Ketones Negative, Urine Occult Blood Negative, Urine Nitrite Negative, Urine Bilirubin Negative, Urine Urobilinogen Normal, Ur Leukocyte Esterase 25 H, Urine RBC 0 SEEN, Urine WBC 0-5 SEEN, Ur Squamous Epith Cells 0-5 SEEN, Urine Bacteria RARE, Urine Mucus 1+ 06/28/22 04:53: Blood Type A NEGATIVE, Antibody Screen NEGATIVE 06/28/22 04:53: WBC 9.2, RBC 4.02 L, Hgb 12.7, Hct 37.5, MCV 93.3, MCH 31.6, MCHC 33.9, RDW Std Deviation 42.4, RDW Coeff of Nia 12.3, Plt Count 190, MPV 9.7, Immature Gran % (Auto) 0.400, Neut % (Auto) 78.9 H, Lymph % (Auto) 10.9 L, [place] % (Auto) 9.0, Eos % (Auto) 0.4, Baso % (Auto) 0.4, Absolute Neuts (auto) 7.3, Absolute Lymphs (auto) 1.01, Nucleated RBC % 0 06/28/22 04:53: Sodium 140, Potassium 3.8, Chloride 111 H, Carbon Dioxide 21.0, Anion Gap 8, BUN 14, Creatinine 0.83, Estim Creat Clear Calc 61.57, Est GFR (MDRD) Af Amer 88, Est GFR (MDRD) Non-Af 72, BUN/Creatinine Ratio 16.8, Glucose 124 H, Calcium 8.8, Total Bilirubin 0.30, AST 28, ALT 33, Alkaline Phosphatase 72, Total Protein 6.2 L, Albumin 3.7, Globulin 2.5, Albumin/Globulin Ratio 1.5 Clinical Impression(s) from Imaging Studies Chest X-Ray 06/27/22 22:30 IMPRESSION: No radiographic evidence of acute cardiopulmonary disease. Hip/Pelvis X-Ray 06/27/22 22:30 IMPRESSION: Acute fracture involving the right femoral neck with varus deformity. Electronically Signed: Denver Munoz MD at 23:27 EST , Charges/Coding Visit Charges Inpatient E&M: 31637 Subs Hosp L2 Multi Select Codes Visit Charges Visit Charges: 36925 Subs Hosp L2
--- NOTE | 2022-06-28 09:06 | EKG12_ITS ---
Test Reason : PRE OP Blood Pressure : / mmHG Vent. Rate : 080 BPM Atrial Rate : 080 BPM P-R Int : 146 ms QRS Dur : 080 ms QT Int : 388 ms P-R-T Axes : 029 024 -01 degrees QTc Int : 447 ms Normal sinus rhythm Nonspecific ST and T wave abnormality Abnormal ECG When compared with ECG of 27-JUN-2022 22:52, MANUAL COMPARISON REQUIRED, DATA IS UNCONFIRMED Confirmed by JEROD BECKMAN, CHARLY ([id number]), map editor MONIK BUCKLEY ([id number]) on 06/30/2022 10:45:15 AM Referred By: SOLITARIO Confirmed By:CHARLY NEWSOME MD
[2022-06-28] MEDS: Lactated Ringers 1,000 ML 50 ML IV (10:38)
--- NOTE | 2022-06-28 10:52 | NURSING ---
pt off floor for surgery
[2022-06-28] MEDS: Cefazolin 2 GM in 0.9% Normal Saline 100 ML IV (12:00)
[2022-06-28] MEDS: Bupivacaine 0.25% 30 ML Vial (13:42)
--- NOTE | 2022-06-28 14:37 | OP.PCM_ITS ---
Report of Operation Date of Procedure: 06/28/22 Description of Surgical Findings:: Preoperative diagnosis: Right displaced femoral neck fracture Postoperative diagnosis: Right displaced femoral neck fracture Procedure: Right total hip arthroplasty Surgeon: Aric Haque DO Hand Stitcher: SHAUN Moore Anesthesia: General endotracheal Anesthesiologist: Dr. Gong Complications: None apparent Drains: None Estimated blood loss: 350 cc Urinary output: 650 cc IV fluids: 1600 cc crystalloid Specimens: Femoral head resection Surgical implants: Lovilia Accolade II 132 degree neck angle hip stem size #4, Biolox delta ceramic V40 femoral head 36 mm diameter +5 mm neck length, Trident 2 TriTanium cluster hole acetabular shell 52 mm outer diameter, 6.5 mm low- profile hex head acetabular screw 25 mm length, Trident X3 10 degree polyethylene insert 36 mm diameter inner diameter Indications: CHARO MCKAY, is a 66 F with past medical history significant for obesity, hypertension, remote history of breast cancer in remission, who presents to [facility] emergency department after a mechanical slip and fall on a wet floor while she was visiting the area decided to go down to the pool area. Patient landed on her right side. Denied any head injury or loss consciousness, neck injury. She denied any antecedent right hip or groin pain. She was unable to bear weight due to pain and was brought by EMS to [facility] emergency department. X-rays revealed a displaced right femoral neck fracture. I was consulted from the emergency department. Patient was subsequently admitted under the service of the hospitalist service. I saw the patient in consultation. This appeared to be an isolated injury to her right hip. I recommended surgical intervention to the right hip. We discussed due to the displaced nature arthroplasty would be indicated. Given her age and activity status, we discussed risks and benefits of total versus Elian hip arthroplasty. I felt a total hip arthroplasty was most appropriate but did carry the increased risk of instability. Patient wished to proceed with a total hip arthroplasty. I reviewed the risks, benefits, alternatives. Risk included but were not limited to bleeding, flexion, loss of life or limb, need f or additional surgery, persistent pain, nonhealing wound, instability, failure of orthopedic hardware, subsidence, wear, fracture, neurovascular injury, DVT or PE, risk of anesthesia. Patient expressed understanding of these risks and wished to proceed with surgery. Description of procedure: Prior to the procedure, patient was brought to the preoperative holding area where patient was identified by name, medical record number and date of . I confirmed the side, site, operation to be performed with the patient. Informed consent was confirmed, All questions were answered to patient satisfaction. The operative extremity was marked. She was also seen by anesthesia staff and anesthesia consent obtained.At time of the operative procedure, pt was brought to the operative suite. General anesthesia was induced on the hospital bed and endotracheal tube placed. After adequate anesthesia, patient was transferred to a standard operating table. She was then positioned in the lateral decubitus position with the right side up and held in position by the Jelli hip positioner system. All bony prominences were well-padded. A axillary roll was placed under the patient's left axilla. Peroneal nerve was free with a blanket on the nonoperative extremity. Leg lengths were reproduced from patient's position when she was supine. The right lower extremity was then prepped and draped in normal, sterile orthopedic fashion. We performed a timeout with all parties in attendance in agreement with the side, site, and operation to be performed. No concerns were voiced and would like to proceed. 2 g Ancef and 1 g IV TXA was administered prior to incision by anesthesia staff. I first marked an incision along the lateral aspect of the hip centered over the greater trochanteric tip. In standard posterior approach, a curvilinear incision was made above the trochanter. An approximately 12 cm incision was made. Skin was sharply incised with a 10 blade scalpel carried deep through s ubcutaneous layers to the level of the IT band. Gelpi retractors were then placed. A Cosme was used to expose the IT band. Bovie cautery was then used for hemostasis and then to open the fascia tirso. This was opened in line with the incision. The trochanteric bursa was then debrided. This identified the short external rotators after internal rotation of the hip. The fracture site was easily identified at this point. Short external rotators were taken down and tagged for later repair. Hip capsule was also tagged for repair with a stay suture. We then freshened the neck cut with a sagittal saw. Anterior and posterior acetabular retractors were placed to gain access to the femoral head. A corkscrew was used to remove the head. Any remaining debris was debrided from the acetabulum. We then placed the femoral head on the back table for measurement. I then prepared the acetabulum. Acetabular labrum was removed with a long handled 10 blade scalpel. Pulvinar was removed to identify the cotyloid fossa. I then medialized with a size 46 mm acetabular reamer. I then sequentially reamed to a final diameter 52 mm. There is excellent cortical chatter with this final diameter and I selected this as a final diameter of 4 acetabular shell. I then impacted the acetabular shell to an appropriate depth, version, and abduction angle. There was excellent rim fit. I then placed a single acetabular screw in the superior aspect of the shell measuring a length of 25 mm. I then placed a 10 degree face changing liner and impacted per baggagemaster recommendations with excellent fixation. Retractors were then removed and we turned our attention to the femur. I elevated the femur with a femoral elevator identifying the femoral neck. Removed remnants of hip capsule to identify the lateral portion of the femoral neck. Box chisel was then utilized to gain access to the femoral canal. Canal finder was placed. Sequential broaches were used in press-fit manner. A final size 4 achieved excellent vertical and rotational stability. We then trialed with a standard 132 degree stem angle and was able to reproduce leg lengths with a +5 mm of neck length. There is excellent range of motion and stability to the hip. I selected these as our final sizes. Final dislocation was performed. I remove the broaches and trials. Wound was copiously irrigated with normal saline solution. I then impacted the size #4 press-fit stem to the desired depth with excellent axial and rotational stability. I copiously irrigated the trunnion. I then impacted the 36 mm outer diameter +5 mm neck length head over top of a clean dry trunnion. Final reduction was performed. A posterior capsular repair was performed with #2 Ethibond suture via bone tunnels. IT band was closed watertight with #1 strata fix suture. Deeper fascial layers were closed with 0 Vicryl suture in interrupted fashion. Subcutaneous layers were reapproximated with 2-0 Vicryl suture and skin reapproximated with a running subcuticular 4-0 Monocryl V-Loc and Dermabond. A silver dressing was applied. Patient tolerated procedure well without complication. She was positioned back in the supine position on her hospital bed and subsequently extubated safely. She was transferred to PACU in stable condition. Blankets were placed between the patient's legs. Post Operative Plan: Weightbearing: Weightbearing as tolerated right lower extremity, posterior hip precautions. Blankets between the legs for the first 24 hours Antibiotics: Ancef 1 g every 8 hours x 3 doses DVT Prophylaxis: Lovenox 40 mg subcutaneous daily x28 days. Vargas: Remove postoperative day #1 Dressing: Maintain silver dressing x7 days X-Rays: PACU x-rays were reviewed demonstrated well-positioned right total hip arthroplasty implant. Follow-up 2-week x-rays in the office. Follow-up: 2 weeks in my office for wound check and x-rays
--- NOTE | 2022-06-28 14:50 | RAD_ITS ---
EXAM: XR RIGHT HIP WITH PELVIS WHEN PERFORMED, 2 OR 3 VIEWS CLINICAL INDICATION: Post Op -- AP both hips on single hilda/lateral of op hip PACU TECHNIQUE: Two or three views of the right hip with pelvis when performed. This report was created using [employer]pler report generation technology. COMPARISON: 06/27/2022. FINDINGS: BONES/JOINTS: Right metallic hip arthroplasty following ORIF of right femoral neck fracture. SOFT TISSUES: Postoperative air and soft tissue swelling the right hip following right metallic hip arthroplasty. RAD/Hip Min 2 Views (Portable) IMPRESSION: Successful right metallic hip arthroplasty with postoperative air and postoperative soft tissue swelling of the right hip. Electronically Signed: Foreign Souza MD at 16:04 EDT ,
[2022-06-28] MEDS: Calcium Carbonate 500 MG Tablet PO (16:37)
[2022-06-28] MEDS: oxyCODONE 5 MG Tablet PO (17:34)
[2022-06-28] MEDS: Cefazolin 1 GM/50 ML BAG IV (20:57)
[2022-06-28] MEDS: RAMELTEON 8 MG TABLET PO (22:13)
[2022-06-28] MEDS: Senna/Docusate Sodium 1 Tablet 2 TABLET PO (22:13)
[2022-06-29 01:23] VITALS: BMI 34.0
[2022-06-29 02:04] VITALS: BP 114/62; PULSE 91; RESP 18; TEMP 37.1; O2SAT 92
[2022-06-29] MEDS: oxyCODONE 5 MG Tablet PO ×5 (02:31→20:34)
[2022-06-29] MEDS: Cefazolin 1 GM/50 ML BAG IV ×2 (04:56→11:36)
[2022-06-29 05:44] VITALS: BP 125/47; PULSE 92; RESP 18; TEMP 37.7; O2SAT 97
[2022-06-29] MEDS: Acetaminophen 325 MG Tablet 650 MG PO ×3 (05:53→20:34)
[2022-06-29] MEDS: Enoxaparin 40 MG/0.4 ML Syringe SC (05:54)
--- NOTE | 2022-06-29 07:53 | PCM.PN.HOSP ---
Reason for Visit Reason for Visit: Right hip pain after mechanical fall Subjective Subjective Ms. Rose is a 66-year-old white female who presented to the emergency department on 06/27/2021 complaining of right hip pain after mechanical fall. She is walking on cement around a pool and slipped landing on her right hip. She immediately tried to get up but was unable to secondary to pain in the right lower extremity. EMS was called in the emergency department imaging demonstrated acute fracture involving the right femoral neck with a varus deformity. She is admitted to medical floor and orthopedic surgery was consulted. They evaluated the patient on 06/28/2021 and took her to the OR yesterday at which time a right total hip arthroplasty was performed. She is to be weightbearing as tolerated with posterior hip precautions. Lovenox 40 mg subcu for 20 days is to be utilized. She is to maintain her silver dressing for 7 days and follow-up in his office in 2 weeks. We are awaiting PT/OT consultation. Patient states she is having ongoing pain that seems to be fairly well controlled however worse than anticipated. She had some lightheadedness with therapy and did not do great this morning. Family is requesting rehab at discharge and case management/7th grade social studies teacher working on these arrangements. Objective Data Objective Data Vital Signs: Vital Signs Temp Pulse Resp BP Pulse Ox O2 Del Method O2 Flow Rate 100 F H 92 18 125/47 H 97 Room Air 2 06/29/22 05:44 06/29/22 05:44 06/29/22 05:44 06/29/22 05:44 06/29/22 05:44 06/29/22 05:44 06/28/22 15:04 Oxygen Flow Rate (L/min) 2 Oxygen Delivery Method Room Air Weight: 95.9 kg Body Mass Index (BMI) 34.0 Intake & Output: Intake and Output for Last 24 Hours 06/27/22 06/28/22 06/29/22 22:59 23:59 23:59 Intake Total 2049 Output Total 1400 / 1400 Balance 650 / 650 Lab / Micro Data Result Diagrams: 06/28/22 04:53 06/28/22 04:53 Radiography Diagnostic Testing: Radiology Impression Hip X-Ray 06/28/22 14:50 IMPRESSION: Successful right metallic hip arthroplasty with postoperative air and postoperative soft tissue swelling of the right hip. Electronically Signed: Foreign Souza MD at 16:04 EDT , Physical Exam Const alert, oriented x3 and well nourished Constitutional Narrative: Obese, sleepy but awake, upper middle-aged white female, lying in bed, family at bedside, patient appears as if she is not feeling well but not toxic HEENT head/scalp atraumatic and moist oral mucous membranes Head and Scalp: normocephalic Resp normal respiratory effort, no retractions, no use of accessory muscles and clear to auscultation bilaterally Auscultation: Negative for rales, rhonchi or wheezes Cardio regular rate, regular rhythm, S1 normal heart sound, S2 normal heart sound, no murmurs, no rub, no gallops and no clicks GI normal to inspection, nondistended, normoactive bowel sounds, soft to palpation and non-tender Skin Skin Narrative: Right hip postoperative dressing in place, clean dry and intact, no significant ecchymosis or swelling, ice was in place at the time of my exam Neuro oriented x3, moves all extremities and no focal motor deficits Speech: speech normal Psych Psych Narrative: Affect is somewhat flat Assessment & Plan Assessment/Plan (1) Closed right hip fracture: (2) Accidental fall: PLAN: Plan Right closed femoral neck fracture with varus deformity -Postop day 1 -Pain management per orthopedic surgery -Bowel regimen -Weightbearing as tolerated -Posterior hip precautions -PT/OT following -Working on placement at rehab facility at discharge per discussion with case management/social work Accidental mechanical fall -With resultant above issues -PT/OT Hypertension -Continue diltiazem -Continue as needed hydralazine History of breast cancer-left -Mastectomy in 2015 -Status post reconstruction -History of chemotherapy and radiation -Currently considered in remission Nonspecific mood disorder -Continue Tegretol -Continue Lamictal Osteoporosis -Continue alendronate Obesity -BMI 34.1 -Recommend weight loss DVT prophylaxis -Lovenox 40 mg daily for 28 days postoperatively per orthopedic recommendations CODE STATUS -Full code Disposition: -Discharge to rehab facility versus SNF once approved Charges/Coding Visit Charges Inpatient E&M: 08412 Subs Hosp L2
--- NOTE | 2022-06-29 07:55 | PN.ORTHO_ITS ---
Subjective Subjective Patient seen and examined. Patient up with nursing last evening. Pain is controlled current pain regimen. Denies fevers, chills, nausea vomiting, chest pain or shortness of breath. Reports lateral hip pain, groin pain improved status post surgery. Denies numbness or tingling. Objective Data Objective Data Vital Signs: Vital Signs Temp Pulse Resp BP Pulse Ox O2 Del Method O2 Flow Rate 100 F H 92 18 125/47 H 97 Room Air 2 06/29/22 05:44 06/29/22 05:44 06/29/22 05:44 06/29/22 05:44 06/29/22 05:44 06/29/22 05:44 06/28/22 15:04 Oxygen Flow Rate (L/min) 2 Oxygen Delivery Method Room Air Weight: 211 lb 6.773 oz Body Mass Index (BMI) 34.0 Intake & Output: Intake and Output for Last 24 Hours 06/27/22 06/28/22 06/29/22 22:59 23:59 23:59 Intake Total 2049 / 2049 Output Total 1400 / 1400 Balance 650 / 650 Lab / Micro Data Result Diagrams: 06/28/22 04:53 06/28/22 04:53 Radiography Diagnostic Testing: Radiology Impression Hip X-Ray 06/28/22 14:50 IMPRESSION: Successful right metallic hip arthroplasty with postoperative air and postoperative soft tissue swelling of the right hip. Electronically Signed: Foreign Souza MD at 16:04 EDT Reading Location ID and State: [address] [place] [address] , Service support , Physical Exam Narrative General - A&Ox3, NAD. VSS/AF Right lower extremity -incisional dressing C/D/I. SILT Sural, Saphenous, SPN, DPN, Tibial N. distributions. DP, PT 2+. BCR. DF, PF, EHL 5/5. No calf TTP. Assessment & Plan Assessment/Plan (1) Closed right hip fracture: PLAN: POD#1 s/p right total hip arthroplasty - Pain control - Medicine following for medical management - PT/OT -posterior precautions, weightbearing as tolerated right lower extremity - DVT PPX -Lovenox 40 mg subcutaneously daily, SCDs, TEETEE hose, early mobilization - Encouraged incentive spirometer use - Case management - D/C planning. Disposition pending progress with therapy.
[2022-06-29] MEDS: Calcium Carbonate 500 MG Tablet PO ×3 (08:16→17:34)
[2022-06-29] MEDS: lamoTRIgine 100 MG Tablet 200 MG PO (08:16)
[2022-06-29] MEDS: Famotidine 20 MG Tablet PO ×2 (08:17→22:41)
[2022-06-29] MEDS: carBAMazepine 200 MG Tablet PO (08:17)
[2022-06-29] MEDS: dilTIAZem 30 MG Tablet PO ×2 (08:17→22:41)
[2022-06-29] MEDS: Senna/Docusate Sodium 1 Tablet 2 TABLET PO ×2 (08:17→22:40)
[2022-06-29 09:55] VITALS: BP 104/57; PULSE 88; RESP 18; TEMP 37.9; O2SAT 93
--- NOTE | 2022-06-29 11:00 | CASEMGMT ---
RN CM NOTE: Pt states her PCP is WINDOW REPAIRER, Yelena Mcmahon, @ [facility] in [place]. Pt states would like to complete AD. Berenice LAIRD, made aware. Sterling FRANKELN RN CM
[2022-06-29] MEDS: 0.9% Saline Lock 10 ML Syringe IV (11:38)
--- NOTE | 2022-06-29 11:53 | CASEMGMT ---
Social Work? SW in to meet with pt following update from that pt will need placement at nursing facility. SW introduced self and role at the hospital. Pt agreeable to discussing discharge planning. Pt daughter was present in the room as well and assisted pt with making choices. A list of SNF providers including quality and resource use data consistent with the patient?s preferred geographic region, medical needs, and insurance network were provided from the [facility]. Pt reviewed list stated [facility] is preference. Second choice would be [facility]. EITAN sent referral to [facility] via [facility]. PLAN: Rehab, pending acceptance WM Werner?
--- NOTE | 2022-06-29 15:17 | CHAPLAIN ---
Type of Pastoral Visit _x__ Initial Visit ___ Follow-up Visit ___ On-call Visit ___ General Patient Visit ___ Spiritual Assessment ___ Family Conference ___ Bereavement ___ Rapid Response ___ Code Blue ___ Other (describe below) Pastoral Care Referral From _x__ Patient _x__ Family ___ Nurse ___ Physician ___ Paint Crew Supervisor ___ Milking System Installer ___ Other (describe below) Sacrament/Intervention _x__ Active listening ___ Anointing ___ Jew ___ Bereavement ___ Communion _x__ Kari exploration ___ _x__ Life review _x__ Prayer ___ Reconciliation ___ Sacrament of Sick _x__ Supportive presence ___ Wedding ___ Other (describe below) Pastoral Comments patient and family are together in room; all are from out of the area; patient was vacationing nearby when she broke her hip; family members ask questions about the hospital, the area, and places to eat; pt admits to pain and disappointment; family is connected to a episcopalian and will call their legal investigator today to notify him of this hospitalization; supportive presence and affirmation given; prayer requested and given
[2022-06-29 15:22] VITALS: BP 114/45; PULSE 89; RESP 18; TEMP 37; O2SAT 93
[2022-06-29 20:36] VITALS: BP 140/52; PULSE 98; RESP 18; TEMP 37.5; O2SAT 96
[2022-06-29] MEDS: DiphenhydrAMINE 25 MG Capsule 50 MG PO (22:40)
[2022-06-29] MEDS: RAMELTEON 8 MG TABLET PO (22:41)
[2022-06-30] VITALS (7 sets, daily range): BP systolic 104–135; BP diastolic 52–62; PULSE 82–97; RESP 18; TEMP 37.1–38.5; O2SAT 95–98; BMI 33.5
--- NOTE | 2022-06-30 03:27 | PCM.HOSP.N ---
Hospitalist Note Patient having fever for about 24 hours, Tmax 101.3 Fahrenheit. Patient had 2 doses of postop IV cefazolin and she completed yesterday noontime. Urine culture shows preliminary [id number] colonies of GNR possible Pseudomonas. Patient is allergic to penicillin therefore will Levaquin 750 mg IV 1 dose and then 5 mg IV daily ordered after blood cultures x2 drawn. Microbiology Past 72 Hours 06/28/22 01:20 Urine Catheter - Vargas Urine Culture - Preliminary GNR Poss Pseudomonas sp
[2022-06-30] MEDS: 0.9% Saline Lock 10 ML Syringe IV ×2 (06:07→08:45)
[2022-06-30] MEDS: levoFLOXacin IV 750 MG/150 ML BAG 100 MG IV (06:07)
[2022-06-30] MEDS: Enoxaparin 40 MG/0.4 ML Syringe SC (06:08)
[2022-06-30 06:13] LABS: Absolute Lymphocyte Count 0.98 X10^3/uL (0.83-4.51); Absolute Neutrophil Count 4.9 X10^3/uL (2.0-7.7); Basophil# 0.03 X10^3/uL; Basophil% 0.4 % (0-1); Eosinophils% 1.5 % (0-5); Hematocrit 26.2 % (37-47); Hemoglobin 8.9 g/dL (12.0-15.0); Lymphocyte # 0.98 X10^3/ul (0.83-4.51); Lymphocyte % 14.7 % (19-41); Mean Corpuscular Hgb 31.6 pg (27.0-32.0); Mean Corpuscular Volume 92.9 fL (81-99); Mean Platelet Vol. 10.3 fl (6.2-12.0); Monocyte# 0.66 X10^3/uL; Monocyte% 9.9 % (0-10); NRBC Flagged by Analyzer 0 % (0-5); Neutrophil # 4.87 X10^3/uL (2.7-7.7); Neutrophil % 73.1 % (47-70); Platelet Count 131 K/mm3 (150-450); RBC Distribution Width CV 12.4 % (11.6-14.6); RBC Distribution Width SD 41.9 fl (35.1-43.9); Red Blood Count 2.82 M/mm3 (4.2-5.4); White Blood Count 6.7 K/mm3 (4.4-11.0)
[2022-06-30 06:36] LABS: Anion Gap 6 (5-15); BUN 8 mg/dL (7-18); BUN/Creat Ratio 12.1 RATIO (10-20); Calcium,Total 8.5 mg/dL (8.5-10.1); Chloride 109 mmol/L (98-107); Creatinine, Serum 0.66 mg/dL (0.55-1.02); EST Glomerular Filtration Rate 95 mL/min (>60); Est Glom Filt Rate - Afr Amer 115 mL/min (>60); Estimated Creatinine Clearance 51.11 ml/min; Glucose 129 mg/dL (74-106); Potassium 3.3 mmol/L (3.5-5.1); Sodium Level 141 mmol/L (136-145)
--- NOTE | 2022-06-30 07:13 | RAD_ITS ---
STUDY: X-RAY CHEST REASON FOR EXAM: Female, 66 years old. Fever TECHNIQUE: Single AP portable view of the chest. COMPARISON: 06/27/2022 FINDINGS: The lungs are clear and expanded. There is no demonstrated pleural abnormality. Normal size heart. Normal mediastinum and jonny. Normal visualized pulmonary arteries. Normal visualized aortic arch and descending thoracic aorta. Normal visualized thoracic spine. Normal visualized ribs, clavicles, and shoulders. There is no demonstrated abnormality of the visualized soft tissue structures of the upper abdomen. RAD/Chest 1 View (Portable) IMPRESSION: No acute pulmonary process Electronically Signed: Matti Carvajal MD at 9:14 EDT ,
[2022-06-30] MEDS: Calcium Carbonate 500 MG Tablet PO ×3 (08:44→16:01)
[2022-06-30] MEDS: carBAMazepine 200 MG Tablet PO (08:44)
[2022-06-30] MEDS: dilTIAZem 30 MG Tablet PO ×2 (08:44→22:07)
[2022-06-30] MEDS: Potassium Chloride Oral Tablet 20 MEQ 40 MEQ PO (08:44)
[2022-06-30] MEDS: lamoTRIgine 100 MG Tablet 200 MG PO (08:44)
[2022-06-30] MEDS: oxyCODONE 5 MG Tablet PO ×2 (08:45→16:01)
[2022-06-30] MEDS: Famotidine 20 MG Tablet PO ×2 (08:45→22:06)
[2022-06-30] MEDS: Senna/Docusate Sodium 1 Tablet 2 TABLET PO ×2 (08:45→22:07)
--- NOTE | 2022-06-30 09:21 | CASEMGMT ---
Addendum entered by Berenice Ramos 06/30/22 15:48: SW in to talk with pt and daughter regarding insurance information. Pt daughter shared had contacted [employer] and was told that the business would be discussing liability with insurance company and would get back with family when this had been discussed/determined. Daughter expressed concern over timeliness and how family has contact sugar boiler in regards to situation. Daughter stated [employer] rep informed that a call would be give back to family tomorrow, hopefully in the AM. Per MD Rod in morning rounds, pt is not medically ready to d/c today anyway. EITAN called Saumya at [facility] to relay information given by family in regards to insurance. Saumya voiced understanding, stated okay with waiting until tomorrow for determination. PLAN: [facility], pending investigation of who is liable to pay bill WM Werner Addendum entered by Berenice Ramos 06/30/22 12:14: SW received call from Saumya at [facility]. Saumya informed pt can be accepted but that insurance needs to be figured out first. Saumya informed that family would need to call [facility] and discuss how [employer] insurance would like the case to be handled. If [facility] medical bills and wants to start the process immediately then [facility] needs to know how that process will be handled and what their part is in that. EITAN in to pt room to share information gathered from with Saumya. EITAN shared pt can be accepted by that insurance/coverage needs to be addressed first. SW explain details to pt and family that were given by Saumya on moving forward with [facility]. Pt daughter to call [facility] to begin process. Daughter to follow up with EITAN once more information is gathered. Addendum entered by Berenice Ramos 06/30/22 09:27: EITAN in to give update to pt. SW explained [facility] will be reviewing case this afternoon. Pt voiced understanding. SW inquired if pt is pursuing [employer] (where pt has confirmed the injury occured) as the payor for medical bills. Pt considering this but not sure how it would work. SW shared intent to explain pt intentions to have [facility] assume responsibility to the Rehab and then go from there. Pt voiced understanding and agreeable to wait [facility] on how to manage medical bills. Original Note: Social work SW called [facility] to follow up on referral sent yesterday. EITAN spoke to Saumya in admission. Saumya informed referral had been received. Saumya also informed team is meeting at 11 am and will review if pt can be accepted. Saumya asked about insurance and if pt will be following through with Medicare or [facility], where it is believe pt sustained the injury. EITAN discussed intent to speak with pt regarding this and then speaking with Saumya later this day when referral has been reviewed. Saumya in agreement. WM Werner
--- NOTE | 2022-06-30 12:02 | CHAPLAIN ---
Type of Pastoral Visit ___ Initial Visit _x__ Follow-up Visit ___ On-call Visit ___ General Patient Visit ___ Spiritual Assessment ___ Family Conference ___ Bereavement ___ Rapid Response ___ Code Blue ___ Other (describe below) Pastoral Care Referral From _x__ Patient ___ Family ___ Nurse ___ Physician ___ E Learning Developer ___ Bowling Ball Weigher And Packer ___ Other (describe below) Sacrament/Intervention _x__ Active listening ___ Anointing ___ Confucianism ___ Bereavement ___ Communion ___ Kari exploration ___ ___ Life review _x__ Prayer ___ Reconciliation ___ Sacrament of Sick _x__ Supportive presence ___ Wedding ___ Other (describe below) Pastoral Comments brief follow up visit given to patient who is from out of town; offer of support; pt says she is still in pain and while knowing she has to go to rehab she is not too happy about it; pt expresses feelings of frustration with asking why as I wasn't even doing anything stupid for this to happen; offer of support, validation of feelings, caring perspective and hope for future; prayer is welcomed too
[2022-06-30 12:06] LABS: Hemoglobin 8.8 g/dL (12.0-15.0)
[2022-06-30] MEDS: Ciprofloxacin 500 MG Tablet PO ×2 (12:34→22:07)
[2022-06-30 14:24] LABS: Mucous, Urine 0 SEEN /hpf (<or=2+); Red Blood Cells-Urine 0 SEEN /hpf (0-5)
[2022-06-30 14:50] LABS: Color, Urine Yellow (Yellow); Glucose, Dipstick Normal (Normal); Ketone-Dipstick Negative (Negative); Leukocyte Esterase-Dipstick 100 /ul (Negative); Nitrite-Dipstick Positive (Negative); Occult Blood-Urine Negative /ul (Negative); Protein-Dipstick 15 mg/dl (Negative); Urine Bilirubin Dipstick Negative (Negative); Urine Clarity Sl. Cloudy (Clear); Urine Urobilinogen Normal (Normal)
[2022-06-30 14:57] LABS: Bacteria 1+ /hpf (None Seen); Squamous Epithelial Cells - UA 0-5 SEEN /hpf (5-10); White Blood Cells 10-25 SEEN /hpf (0-5)
--- NOTE | 2022-06-30 15:49 | PN.HOSP_ITS ---
Reason for Visit Reason for Visit: Fall/R Hip Pain Subjective Subjective Patient was brought overnight with a Tmax of 101.3. No further fever today. Denies any complaints other than ongoing right hip pain. Her UA on admission had Pseudomonas present but it was less than 10,000 colony count so antibiotics were not initiated at that time however with her fever overnight physician started Levaquin. We are awaiting acceptance at a rehab facility and she is medical stable to go. Objective Data Objective Data Vital Signs: Vital Signs Temp Pulse Resp BP Pulse Ox O2 Del Method O2 Flow Rate 99.4 F H 88 18 104/57 L 96 Room Air 2 06/30/22 14:07 06/30/22 14:07 06/30/22 14:07 06/30/22 14:07 06/30/22 14:07 06/30/22 14:07 06/28/22 15:04 Oxygen Flow Rate (L/min) 2 Oxygen Delivery Method Room Air Weight: 94.6 kg Body Mass Index (BMI) 33.5 Intake & Output: Intake and Output for Last 24 Hours 06/28/22 06/29/22 06/30/22 23:59 23:59 23:59 Intake Total 2173.5 / 2173.5 950 / 950 Output Total 1500 / 1500 Balance 673.5 / 673.5 950 / 950 Lab / Micro Data Result Diagrams: 06/30/22 11:53 06/30/22 05:45 Labs: Laboratory Results - last 24 hr 06/30/22 05:45: WBC 6.7, RBC 2.82 L, Hgb 8.9 L, Hct 26.2 L, MCV 92.9, MCH 31.6, MCHC 34.0, RDW Std Deviation 41.9, RDW Coeff of Nia 12.4, Plt Count 131 L, MPV 10.3, Immature Gran % (Auto) 0.400, Neut % (Auto) 73.1 H, Lymph % (Auto) 14.7 L, [place] % (Auto) 9.9, Eos % (Auto) 1.5, Baso % (Auto) 0.4, Absolute Neuts (auto) 4.9, Absolute Lymphs (auto) 0.98, Nucleated RBC % 0 06/30/22 05:45: Sodium 141, Potassium 3.3 L, Chloride 109 H, Carbon Dioxide 26.0, Anion Gap 6, BUN 8, Creatinine 0.66, Estim Creat Clear Calc 51.11, Est GFR (MDRD) Af Amer 115, Est GFR (MDRD) Non-Af 95, BUN/Creatinine Ratio 12.1, Glucose 129 H, Calcium 8.5 06/30/22 07:00: Urine Color Yellow, Urine Clarity Sl. Cloudy, Urine pH 7.0, Ur Specific [place] 1.010, Urine Protein 15 H, Urine Glucose (UA) Normal, Urine Ketones Negative, Urine Occult Blood Negative, Urine Nitrite Positive H, Urine Bilirubin Negative, Urine Urobilinogen Normal, Ur Leukocyte Esterase 100 H, Urine RBC 0 SEEN, Urine WBC 10-25 SEEN, Ur Squamous Epith Cells 0-5 SEEN, Urine Bacteria 1+, Urine Mucus 0 SEEN 06/30/22 11:53: Hgb 8.8 L Micro: Microbiology 06/30/22 07:48 Mucosa - Nasopharyngeal Respiratory Panel (PCR) - Final 06/30/22 07:48 Nasal Secretion SARS-CoV-2 & FLU Antigen (Rapid) - Final 06/28/22 01:20 Urine Catheter - Vargas Urine Culture - Final Pseudomonas aeruginosa Radiography Diagnostic Testing: Radiology Impression Chest X-Ray 06/30/22 07:13 IMPRESSION: No acute pulmonary process Electronically Signed: Matti Carvajal MD at 9:14 EDT , Physical Exam Const alert, oriented x3, no apparent distress and well nourished Constitutional Narrative: Obese,upper middle-aged white female, sitting up in chair at the bedside, patient watching television, appears comfortable at this time, nontoxic HEENT head/scalp atraumatic and moist oral mucous membranes HEENT Narrative: Mallampati 2-3, no thrush Resp normal respiratory effort, no retractions, no use of accessory muscles and clear to auscultation bilaterally Auscultation: Negative for rales, rhonchi or wheezes Cardio regular rate, regular rhythm, S1 normal heart sound, S2 normal heart sound, no murmurs, no rub, no gallops and no clicks GI normal to inspection, nondistended, normoactive bowel sounds, soft to palpation and non-tender Extremity no clubbing, cyanosis or edema Extremity Narrative: 2+ pedal pulses Skin Skin Narrative: Right hip postoperative dressing in place, clean dry and intact, no significant ecchymosis or swelling Neuro oriented x3, moves all extremities and no focal motor deficits Speech: speech normal Psych Psych Narrative: Affect is somewhat flat Assessment & Plan Assessment/Plan (1) Closed right hip fracture: (2) Accidental fall: (3) Fever: PLAN: Plan Right closed femoral neck fracture with varus deformity -Postop day 2 -Pain management per orthopedic surgery -Bowel regimen -Weightbearing as tolerated -Posterior hip precautions -PT/OT following -Working on placement at rehab facility at discharge per discussion with case management/social work -Patient has been accepted and payment details being worked out prior to discharge Fever -Chest x-ray unremarkable -COVID and flu are negative -Respiratory viral panel is unremarkable -Urine culture on admission showed Pseudomonas but colony counts were 1000- 10,000 and therefore antibiotics were not initiated -Given new fever and prosthetic joint we will go ahead and treat -Levaquin started overnight but will transition to Cipro x3 days -Blood cultures are pending -Repeat urine culture Anemia -patient had a hemoglobin of 12.7 preoperatively -Postoperatively 8.9 this morning -Repeat done at noon showing a stable hemoglobin 8.8 -Suspect related to blood clots and hemodilution -Repeat CBC in a.m. Thrombocytopenia -Mild at 131,000 -Suspect related to consumption with above blood noted blood loss -Repeat CBC in a.m. Hypokalemia -40 mill equivalents p.o. potassium replacement -Repeat in a.m. -Check a.m. magnesium level Accidental mechanical fall -With resultant above issues -PT/OT Hypertension -Continue diltiazem -Continue as needed hydralazine History of breast cancer-left -Mastectomy in 2014 -Status post reconstruction -History of chemotherapy and radiation -Currently considered in remission Nonspecific mood disorder -Continue Tegretol -Continue Lamictal Osteoporosis -Continue alendronate Obesity -BMI 34.1 -Recommend weight loss DVT prophylaxis -Lovenox 40 mg daily for 28 days postoperatively per orthopedic recommendations CODE STATUS -Full code Disposition: -Discharge to rehab facility versus SNF once approved Charges/Coding Visit Charges Inpatient E&M: 58274 Subs Hosp L2
[2022-06-30] MEDS: Acetaminophen 325 MG Tablet 650 MG PO (16:00)
--- NOTE | 2022-06-30 17:18 | PN.ORTHO_ITS ---
Subjective Subjective Patient seen and examined. Denies any new complaints. Denies subjective fevers or chills. Denies chest pain, shortness of breath, nausea or vomiting. Up with therapy again today. She states her pain is slightly improved. She states the plan is to rehab at [facility], closer to home. Objective Data Objective Data Vital Signs: Vital Signs Temp Pulse Resp BP Pulse Ox O2 Del Method O2 Flow Rate 99.4 F H 88 18 104/57 L 96 Room Air 2 06/30/22 14:07 06/30/22 14:07 06/30/22 14:07 06/30/22 14:07 06/30/22 14:07 06/30/22 14:07 06/28/22 15:04 Oxygen Flow Rate (L/min) 2 Oxygen Delivery Method Room Air Weight: 208 lb 8.917 oz Body Mass Index (BMI) 33.5 Intake & Output: Intake and Output for Last 24 Hours 06/28/22 06/29/22 06/30/22 23:59 23:59 23:59 Intake Total 2173.5 / 2173.5 950 / 950 Output Total 1500 / 1500 Balance 673.5 / 673.5 950 / 950 Lab / Micro Data Result Diagrams: 06/30/22 11:53 06/30/22 05:45 Labs: Laboratory Results - last 24 hr 06/30/22 05:45: WBC 6.7, RBC 2.82 L, Hgb 8.9 L, Hct 26.2 L, MCV 92.9, MCH 31.6, MCHC 34.0, RDW Std Deviation 41.9, RDW Coeff of Nia 12.4, Plt Count 131 L, MPV 10.3, Immature Gran % (Auto) 0.400, Neut % (Auto) 73.1 H, Lymph % (Auto) 14.7 L, [place] % (Auto) 9.9, Eos % (Auto) 1.5, Baso % (Auto) 0.4, Absolute Neuts (auto) 4.9, Absolute Lymphs (auto) 0.98, Nucleated RBC % 0 06/30/22 05:45: Sodium 141, Potassium 3.3 L, Chloride 109 H, Carbon Dioxide 26.0, Anion Gap 6, BUN 8, Creatinine 0.66, Estim Creat Clear Calc 51.11, Est GFR (MDRD) Af Amer 115, Est GFR (MDRD) Non-Af 95, BUN/Creatinine Ratio 12.1, Glucose 129 H, Calcium 8.5 06/30/22 07:00: Urine Color Yellow, Urine Clarity Sl. Cloudy, Urine pH 7.0, Ur Specific [place] 1.010, Urine Protein 15 H, Urine Glucose (UA) Normal, Urine Ketones Negative, Urine Occult Blood Negative, Urine Nitrite Positive H, Urine Bilirubin Negative, Urine Urobilinogen Normal, Ur Leukocyte Esterase 100 H, Urine RBC 0 SEEN, Urine WBC 10-25 SEEN, Ur Squamous Epith Cells 0-5 SEEN, Urine Bacteria 1+, Urine Mucus 0 SEEN 06/30/22 11:53: Hgb 8.8 L Micro: Microbiology 06/30/22 07:48 Mucosa - Nasopharyngeal Respiratory Panel (PCR) - Final 06/30/22 07:48 Nasal Secretion SARS-CoV-2 & FLU Antigen (Rapid) - Final 06/28/22 01:20 Urine Catheter - Vargas Urine Culture - Final Pseudomonas aeruginosa Radiography Diagnostic Testing: Radiology Impression Chest X-Ray 06/30/22 07:13 IMPRESSION: No acute pulmonary process Electronically Signed: Matti Carvajal MD at 9:14 EDT Reading Location ID and State: [facility] / [place] , Service support , Physical Exam Narrative General - A&Ox3, NAD. VSS/AF Right lower extremity -incisional dressing C/D/I. SILT Sural, Saphenous, SPN, DPN, Tibial N. distributions. DP, PT 2+. BCR. DF, PF, EHL 5/5. No calf TTP. Assessment & Plan Assessment/Plan (1) Closed right hip fracture: PLAN: POD#2 s/p right total hip arthroplasty - Pain control -changes made to current pain regimen. Scheduled Tylenol 1000 mg 3 times daily, increase oxycodone to 5-10 mg in hopes to optimize her pain control. - Medicine following for medical management - PT/OT -posterior precautions, weightbearing as tolerated right lower extremity - DVT PPX -Lovenox 40 mg subcutaneously daily, SCDs, TEETEE hose, early mobilization - Encouraged incentive spirometer use. Patient spiked a fever last night, no evidence of wound infection. - Case management - D/C planning. Agree with acute rehab placement. -Agree with rechecking H&H in the morning. Acute blood loss anemia secondary to expected blood loss with surgery and hemodilution. If H&H stable in the morning, stable for discharge from my standpoint. Plan to follow-up 2 weeks postoperatively. Discharge wound instructions placed in chart.
[2022-06-30] MEDS: RAMELTEON 8 MG TABLET PO (22:06)
[2022-06-30] MEDS: DiphenhydrAMINE 25 MG Capsule 50 MG PO (22:06)
[2022-06-30] MEDS: Acetaminophen 500 MG Tablet 1000 MG PO (22:06)
[2022-07-01 01:28] VITALS: BMI 32.8
[2022-07-01 02:33] VITALS: BP 115/55; PULSE 80; RESP 18; TEMP 37; O2SAT 94
[2022-07-01 06:15] LABS: Absolute Lymphocyte Count 0.77 X10^3/uL (0.83-4.51); Absolute Neutrophil Count 3.3 X10^3/uL (2.0-7.7); Basophil# 0.02 X10^3/uL; Basophil% 0.4 % (0-1); Eosinophil# 0.15 X10^3/uL; Eosinophils% 3.1 % (0-5); Hematocrit 25.8 % (37-47); Hemoglobin 8.6 g/dL (12.0-15.0); Lymphocyte # 0.77 X10^3/ul (0.83-4.51); Lymphocyte % 16.1 % (19-41); Mean Corp Hgb Conc 33.3 g/dL (32-36); Mean Corpuscular Hgb 31.5 pg (27.0-32.0); Mean Corpuscular Volume 94.5 fL (81-99); Mean Platelet Vol. 10.5 fl (6.2-12.0); Monocyte# 0.55 X10^3/uL; Monocyte% 11.5 % (0-10); NRBC Flagged by Analyzer 0 % (0-5); Neutrophil # 3.25 X10^3/uL (2.7-7.7); Neutrophil % 67.9 % (47-70); Platelet Count 128 K/mm3 (150-450); RBC Distribution Width CV 12.5 % (11.6-14.6); Red Blood Count 2.73 M/mm3 (4.2-5.4); White Blood Count 4.8 K/mm3 (4.4-11.0)
[2022-07-01] MEDS: Enoxaparin 40 MG/0.4 ML Syringe SC (06:24)
[2022-07-01] MEDS: Acetaminophen 500 MG Tablet 1000 MG PO ×3 (06:24→21:34)
[2022-07-01 06:44] LABS: Anion Gap 5 (5-15); BUN 7 mg/dL (7-18); BUN/Creat Ratio 11.3 RATIO (10-20); Calcium,Total 8.4 mg/dL (8.5-10.1); Chloride 111 mmol/L (98-107); Creatinine, Serum 0.62 mg/dL (0.55-1.02); EST Glomerular Filtration Rate 102 mL/min (>60); Est Glom Filt Rate - Afr Amer 124 mL/min (>60); Estimated Creatinine Clearance 51.11 ml/min; Glucose 115 mg/dL (74-106); Potassium 3.6 mmol/L (3.5-5.1); Sodium Level 141 mmol/L (136-145)
[2022-07-01 07:59] LABS: Platelet Count 137 K/mm3 (150-450); RET-HE 30.7 pg (30-35); Reticulocyte Count 2.33 % (0.5-1.5)
[2022-07-01 08:00] LABS: Ferritin 320 ng/mL (8-252); Iron 28 ug/dL (50-170); Iron Binding Capacity,Total 156 ug/dL (250-450); PERCENT IRON SATURATION 17.9 % (15.0-55.0)
[2022-07-01] MEDS: Famotidine 20 MG Tablet PO ×2 (10:12→21:34)
[2022-07-01] MEDS: Calcium Carbonate 500 MG Tablet PO ×3 (10:12→16:39)
[2022-07-01] MEDS: lamoTRIgine 100 MG Tablet 200 MG PO (10:12)
[2022-07-01] MEDS: dilTIAZem 30 MG Tablet PO ×2 (10:12→21:34)
[2022-07-01] MEDS: Senna/Docusate Sodium 1 Tablet 2 TABLET PO ×2 (10:13→21:34)
[2022-07-01] MEDS: carBAMazepine 200 MG Tablet PO (10:13)
[2022-07-01] MEDS: Ciprofloxacin 500 MG Tablet PO ×2 (10:13→21:34)
[2022-07-01] MEDS: oxyCODONE 5 MG Tablet PO ×3 (10:15→22:29)
[2022-07-01 10:30] VITALS: BP 117/54; PULSE 81; RESP 15; TEMP 37; O2SAT 97
--- NOTE | 2022-07-01 14:15 | CASEMGMT ---
Social Work SW in to speak with pt and daughter regarding discharge plan. Daughter shared had not heard back from [employer], who was supposed to find out if [employer] would pay for pt to go to rehab. EITAN took number from [employer] and called to find out information. Paint Dipper, Didier, informed EITAN that contact had been made with [employer]'s mill hand, Cecy. Cecy shared intent with Didier to discuss with the legal team if [employer] was liable for payment of bills and rehab. Didier had not heard back from Cecy today but informed EITAN that a call would be placed to Cecy shortly to discuss. Didier asked if pt would remain in hospital while the determination was made. EITAN shared this was uncertain but that a payor source needs to be established before pt can discharge or the rehab facility will not admit pt. Didier voiced understanding. Didier stated would call this SW back with additional information, if before 4 pm today. If not Carol would contact pt daughter, who can pass along information to EITAN Farrell, who will be on MS3 tomorrow. PLAN: [facility], when insurance is sorted out WM Werner
--- NOTE | 2022-07-01 15:28 | PCM.PN.HOSP ---
Reason for Visit Reason for Visit: Right femoral neck fracture Subjective Subjective No issues overnight. Patient was afebrile with a Tmax in the last 24 hours of 99.9. Patient states pain is overall well controlled and seems to be improving. Patient has been accepted for rehab but trying to clarify payment issues prior to discharge. Patient is medically stable for discharge at this time Objective Data Objective Data Vital Signs: Vital Signs Temp Pulse Resp BP Pulse Ox O2 Del Method O2 Flow Rate 98.6 F 81 15 117/54 L 97 Room Air 2 07/01/22 10:30 07/01/22 10:30 07/01/22 10:30 07/01/22 10:30 07/01/22 10:30 07/01/22 10:30 06/28/22 15:04 Oxygen Flow Rate (L/min) 2 Oxygen Delivery Method Room Air Weight: 92.7 kg Body Mass Index (BMI) 32.8 Intake & Output: Intake and Output for Last 24 Hours 06/29/22 06/30/22 07/01/22 23:59 23:59 23:59 Intake Total 2173.5 / 2173.5 950 / 950 800 / 800 Output Total 1500 / 1500 Balance 673.5 / 673.5 950 / 950 800 / 800 Lab / Micro Data Result Diagrams: 07/01/22 05:33 07/01/22 05:33 Labs: Laboratory Results - last 24 hr 07/01/22 05:33: WBC 4.8, RBC 2.73 L, Hgb 8.6 L, Hct 25.8 L, MCV 94.5, MCH 31.5, MCHC 33.3, RDW Std Deviation 43.0, RDW Coeff of Nia 12.5, Plt Count 128 L, MPV 10.5, Immature Gran % (Auto) 1.000 H, Neut % (Auto) 67.9, Lymph % (Auto) 16.1 L, [place] % (Auto) 11.5 H, Eos % (Auto) 3.1, Baso % (Auto) 0.4, Absolute Neuts (auto) 3.3, Absolute Lymphs (auto) 0.77 L, Nucleated RBC % 0 07/01/22 05:33: Sodium 141, Potassium 3.6, Chloride 111 H, Carbon Dioxide 25.0, Anion Gap 5, BUN 7, Creatinine 0.62, Estim Creat Clear Calc 51.11, Est GFR (MDRD) Af Amer 124, Est GFR (MDRD) Non-Af 102, BUN/Creatinine Ratio 11.3, Glucose 115 H, Calcium 8.4 L, Magnesium 2.0 07/01/22 05:33: Retic Count 2.33 H, Immature Retic Fraction 23.80 H, Retic Hgb Equivalent 30.7 07/01/22 05:33: Iron 28 L, TIBC 156 L, Iron Saturation 17.9, Ferritin 320 H Micro: Microbiology 06/30/22 07:00 Urine, Clean Catch Urine Culture - Preliminary Culture exhibits no growth. 06/30/22 07:48 Mucosa - Nasopharyngeal Respiratory Panel (PCR) - Final 06/30/22 07:48 Nasal Secretion SARS-CoV-2 & FLU Antigen (Rapid) - Final 06/28/22 01:20 Urine Catheter - Vargas Urine Culture - Final Pseudomonas aeruginosa Physical Exam Const alert, oriented x3, no apparent distress and well nourished Constitutional Narrative: Obese,upper middle-aged white female, sitting up in bed, patient watching television, appears comfortable at this time, nontoxic HEENT head/scalp atraumatic and moist oral mucous membranes HEENT Narrative: Mallampati 2, no thrush Head and Scalp: normocephalic Resp normal respiratory effort, no retractions, no use of accessory muscles and clear to auscultation bilaterally Auscultation: Negative for rales, rhonchi or wheezes Cardio regular rate, regular rhythm, S1 normal heart sound, S2 normal heart sound, no murmurs, no rub, no gallops and no clicks GI normal to inspection, nondistended, normoactive bowel sounds, soft to palpation and non-tender Extremity no clubbing, cyanosis or edema Extremity Narrative: 2+ pedal pulses Skin Skin Narrative: Right hip postoperative dressing in place, clean dry and intact, no significant ecchymosis or swelling Neuro oriented x3, moves all extremities and no focal motor deficits Neuro Narrative: Decreased movement right lower extremity secondary to pain related to recent fracture and surgery Speech: speech normal Psych affect normal Psych Narrative: Appropriately interactive Assessment & Plan Assessment/Plan (1) Closed right hip fracture: (2) Accidental fall: (3) Fever: PLAN: Plan Right closed femoral neck fracture with varus deformity -Postop day 3 -Pain management per orthopedic surgery -Bowel regimen -Weightbearing as tolerated -Posterior hip precautions -PT/OT following -Working on placement at rehab facility at discharge per discussion with case management/social work -Patient has been accepted and payment details being worked out prior to discharge--> patient is medically stable for discharge Fever -Chest x-ray unremarkable -COVID and flu are negative -Respiratory viral panel is unremarkable -Urine culture on admission showed Pseudomonas but colony counts were 1000-10,000 and therefore antibiotics were not initiated -Given new fever and prosthetic joint we will go ahead and treat -Day 2 of 3 for Cipro -Blood cultures are pending -Repeat urine cultures with no growth Anemia -patient had a hemoglobin of 12.7 preoperatively -Postoperatively 8.6 this morning -Iron studies done and are not consistent with iron deficiency and patient does have an elevated reticulocyte count -No sign acute bleeding -Check fecal call if able -Suspect related to blood loss and hemodilution -Repeat CBC in a.m. Thrombocytopenia -Mild at 128,000 and relatively stable -Suspect related to consumption with above blood noted blood loss -Repeat CBC in a.m. Hypokalemia - resolved Accidental mechanical fall -With resultant above issues -PT/OT Hypertension -Continue diltiazem -Continue as needed hydralazine -Blood pressures are well controlled History of breast cancer-left -Mastectomy in 2015 -Status post reconstruction -History of chemotherapy and radiation -Currently considered in remission Nonspecific mood disorder -Continue Tegretol -Continue Lamictal Osteoporosis -Continue alendronate Obesity -BMI 34.1 -Recommend weight loss DVT prophylaxis -Lovenox 40 mg daily for 28 days postoperatively per orthopedic recommendations CODE STATUS -Full code Disposition: -Patient has been accepted at rehab facility and currently working on payment issues-patient is medically stable for discharge at this time Charges/Coding Visit Charges Inpatient E&M: 70800 Subs Hosp L2
[2022-07-01 16:00] VITALS: BP 104/52; PULSE 81; RESP 14; TEMP 37.4; O2SAT 98
[2022-07-01 20:58] VITALS: BP 123/61; PULSE 73; RESP 18; TEMP 36.9; O2SAT 96
[2022-07-01] MEDS: DiphenhydrAMINE 25 MG Capsule 50 MG PO (21:34)
[2022-07-01] MEDS: RAMELTEON 8 MG TABLET PO (21:35)
[2022-07-02] MEDS: oxyCODONE 5 MG Tablet PO ×3 (00:26→15:46)
[2022-07-02 02:50] VITALS: BP 131/58; PULSE 74; RESP 18; TEMP 36.9; O2SAT 95
[2022-07-02] MEDS: Acetaminophen 500 MG Tablet 1000 MG PO ×2 (05:09→13:34)
[2022-07-02] MEDS: oxyCODONE 5 MG Tablet 10 MG PO (05:10)
[2022-07-02] MEDS: Enoxaparin 40 MG/0.4 ML Syringe SC (05:10)
[2022-07-02 05:49] VITALS: BMI 32.5
[2022-07-02 06:54] LABS: Absolute Lymphocyte Count 0.83 X10^3/uL (0.83-4.51); Absolute Neutrophil Count 2.1 X10^3/uL (2.0-7.7); Basophil# 0.02 X10^3/uL; Basophil% 0.6 % (0-1); Eosinophil# 0.22 X10^3/uL; Eosinophils% 6.1 % (0-5); Hematocrit 25.4 % (37-47); Hemoglobin 8.3 g/dL (12.0-15.0); Lymphocyte # 0.83 X10^3/ul (0.83-4.51); Lymphocyte % 23.2 % (19-41); Mean Corp Hgb Conc 32.7 g/dL (32-36); Mean Corpuscular Hgb 31.2 pg (27.0-32.0); Mean Corpuscular Volume 95.5 fL (81-99); Mean Platelet Vol. 10.4 fl (6.2-12.0); Monocyte% 11.2 % (0-10); NRBC Flagged by Analyzer 0 % (0-5); Neutrophil # 2.06 X10^3/uL (2.7-7.7); Neutrophil % 57.5 % (47-70); Platelet Count 177 K/mm3 (150-450); RBC Distribution Width CV 12.6 % (11.6-14.6); RBC Distribution Width SD 44.1 fl (35.1-43.9); Red Blood Count 2.66 M/mm3 (4.2-5.4); White Blood Count 3.6 K/mm3 (4.4-11.0)
[2022-07-02] MEDS: Calcium Carbonate 500 MG Tablet PO ×2 (07:46→13:34)
[2022-07-02 08:00] VITALS: BP 115/47; PULSE 70; RESP 14; TEMP 37.1; O2SAT 96
[2022-07-02 09:56] VITALS: BP 129/62; PULSE 82
[2022-07-02] MEDS: lamoTRIgine 100 MG Tablet 200 MG PO (10:00)
[2022-07-02] MEDS: Ciprofloxacin 500 MG Tablet PO (10:00)
[2022-07-02] MEDS: dilTIAZem 30 MG Tablet PO (10:00)
[2022-07-02] MEDS: Famotidine 20 MG Tablet PO (10:00)
[2022-07-02] MEDS: carBAMazepine 200 MG Tablet PO (10:00)
[2022-07-02] MEDS: Senna/Docusate Sodium 1 Tablet 2 TABLET PO (10:00)
--- NOTE | 2022-07-02 11:00 | CASEMGMT ---
Addendum entered by Jami De León 07/02/22 13:46: Social Work Pt dgt Ariane here requesting to speak with SW. Ariane has not heard from insurance yet. SW spoke with Ariane informing that pt is medically ready for discharge and that pt would benefit from going to Inpatient Rehab to start her rehabilitation. Discussed going to [facility] under Medicare now vs waiting on liability insurance to determine if they will cover cost of rehab. After discussion pt dgt stating she feels pt should go to [facility] under Medicare benefit. Immediately after conversation with dgt, SW received a call from pt Angelito. Angelito states he has spoke with his attorneys and all parties are recommending pt go to [facility] under Medicare and not liability insurance. SW agreeable and informing Angelito that pt is medically ready for discharge today. Angelito agreeable to discharge to [facility] under Medicare Benefit. Phone call to Saumya at [facility] and they are agreeable to accept pt today under Medicare Benefit. EITAN met with pt and dgt in room who are also agreeable. Physician updated and plans to discharge today. WM Barclay Original Note: Social Work SW met with pt and updated that she is medically ready for discharge to Inpatient Rehab. Pt agrees and states that her daughter is working on confirming payment for IR with [employer] and requested SW contact dgt. Phone call to pt dgt Ariane. Ariane states that she was told by [employer] yesterday that their insurance would be calling her to discuss accident and if they would cover the cost of rehab. Ariane has not yet received phone call. Ariane stating she does not want pt to go to IR under Medicare Benefit but [facility]. Phone call to Didier, it audit manager at [facility] who states the case has been turned over to their insurance and there is nothing further that [employer] can do. The case is in the hands of the insurance who was asked to reach out to pt dgt yesterday. Phone call to Saumya at [facility]. They continue to be able to accept pt but are waiting on confirmation of payor. EITAN will contact Ariane later today to find out outcome of insurance conversation. WM Barclay
--- NOTE | 2022-07-02 13:33 | PCM.DC.SUM ---
Providers Date of Admission: 06/27/22 Date of Discharge: 07/02/22 Primary Care Physician: Out of [facility] Doctor Consultations 06/28/22 01:13 Consult: Orthopedics Routine Consulting Provider: Aric Haque Reason for Consult: R hip fracture, fall EMERGENT Consult: No MD Notified: Yes Date Notified: 06/27/22 Time Notified: 23:46 Method of Notification: ED Physician Initiated Reason For Visit: FALL, R HIP FRACTURE Diagnosis Discharge Diagnosis (1) Closed right hip fracture: Status: Acute Code(s): S72.001A - Fracture of unspecified part of neck of right femur, initial encounter for closed fracture (2) Accidental fall: Status: Acute Code(s): W19.XXXA - Unspecified fall, initial encounter (3) Fever: Status: Acute Code(s): R50.9 - Fever, unspecified Medications at Discharge Home Medications alendronate 35 mg tablet 35 mg PO SA bone health 06/27/22 aspirin 81 mg tablet,delayed release 81 mg PO QHS heart health 06/27/22 carbamazepine 200 mg tablet 200 mg PO DAILY Check with primary doctor 06/27/22 diltiazem HCl 30 mg tablet 30 mg PO BID esophagus 06/27/22 diphenhydramine HCl 50 mg capsule 50 mg PO QHS sleep 06/27/22 lamotrigine 200 mg tablet 200 mg PO DAILY mood 06/27/22 ramelteon 8 mg tablet 8 mg PO QHS sleep 06/28/22 ciprofloxacin HCl 500 mg tablet 500 mg PO BID #2 tabs 07/02/22 enoxaparin 40 mg/0.4 mL subcutaneous syringe 40 mg (0.4 mL) subcut DAILY@0600 #4 mL 07/02/22 oxycodone 5 mg tablet 5 mg PO Q4H PRN PRN Pain Score 3-6 1 day #6 tabs 07/02/22 sennosides 8.6 mg-docusate sodium 50 mg tablet (Stool Softener-Stimulant Laxative) 2 tab PO BID #0 tabs 07/02/22 Hospital Course Operations total hip replacement and - Procedures EKG and - (Chest x-ray/hip/pelvic x-rays) Summary of Care Provided Minutes Spent on Discharge: 37 Hospital Course: Ms. Rose is a 66-year-old white female who presented to the emergency department on 06/27/2021 complaining of right hip pain after mechanical fall.? She was walking on cement around a pool at [facility] and slipped landing on her right hip.? She immediately tried to get up but was unable to secondary to pain in the right lower extremity.? EMS was called in the emergency department imaging demonstrated acute fracture involving the right femoral neck with a varus deformity.? She is admitted to medical floor and orthopedic surgery was consulted.? They evaluated the patient on 06/28/2021 and took her to the OR on 06/28/2022 at which time a right total hip arthroplasty was performed.? She is to be weightbearing as tolerated with posterior hip precautions.? Lovenox 40 mg subcu for 28 days is to be utilized with a stop date of 07/24/2022.? She is to maintain her silver dressing for 7 days and follow-up in his office in 2 weeks.? She was evaluated by physical and Occupational Therapy and they deemed her appropriate for ongoing acute rehab. [facility] is from the [facility] and was accepted at [facility]'s rehab unit. She did develop some postoperative fever which resolved. Her urine culture on admission showed Pseudomonas but was only 1000-10,000 colony counts and therefore was not initiated on antibiotics on admission. Given the fevers and her recent total hip arthroplasty we did treat her for 3 days and she has 1 more day of treatment with Cipro to complete a course. COVID and flu were obtained and were negative, chest x-ray was unremarkable. Repeat urine culture was negative. Blood cultures were unremarkable. She did develop some postoperative anemia which was to be anticipated given her acute fracture. Iron studies were not consistent with iron deficiency and we did order Hemoccult however she was not able to produce a stool sample for us prior to discharge. Her hemoglobin did stabilize and was 8.3 at the time of discharge. Her baseline hemoglobin on admission was 12.7. Payment for rehab delayed her discharge as it was unclear if [employer] or her insurance company was going to cover the cost. Once this was identified discharge was arranged. She is to complete Lovenox as noted above, Cipro as noted above and was discharged with a 24-hour supply of pain medication. She is to follow-up with Dr. Haque in his office in 2 weeks and appointment was made prior to discharge. She was discharged to rehab unit at [facility] in stable condition on 07/02/2022. She will need a repeat CBC in 3 days to reassess hemoglobin for stability. Discharge diagnoses: Right closed femoral neck fracture with varus deformity postop day 4 total hip arthroplasty UTI Acute anemia Thrombocytopenia-resolved Hypokalemia-resolved Accidental mechanical fall Hypertension History of breast cancer left Unspecified mood disorder Osteoporosis Obesity Physical Exam Narrative Pain is slowly getting better. No issues overnight. Const alert, oriented x3, no apparent distress and well nourished Constitutional Narrative: Obese,upper middle-aged white female, sitting up in a chair at the bedside, patient watching television, appears comfortable at this time, nontoxic, nursing at bedside General Appearance: cooperative, comfortable, well kempt and well developed Orientation / Consciousness: awake, oriented to person, oriented to place and oriented to time Exam Limitations: no limitations Nutritional Appearance: obese HEENT normocephalic, head/scalp atraumatic, hearing grossly normal bilaterally and moist oral mucous membranes HEENT Narrative: Mallampati 2-3, no thrush Eyes PERRL and EOMs intact bilaterally Eyes Narrative: Conjunctiva are mildly pale, no scleral icterus Neck no lymphadenopathy, supple and no JVD Neck Narrative: Trachea midline, no thyroid enlargement Resp normal respiratory effort, no retractions, no use of accessory muscles and clear to auscultation bilaterally Auscultation: Negative for rales, rhonchi or wheezes Cardio regular rate, regular rhythm, S1 normal heart sound, S2 normal heart sound, no murmurs, no rub, no gallops and no clicks GI normal to inspection, nondistended, normoactive bowel sounds, soft to palpation and non-tender Extremity no clubbing, cyanosis or edema Extremity Narrative: 2+ pedal pulses Skin no rashes or lesions noted, skin turgor normal and no jaundice Skin Narrative: Right hip postoperative dressing in place, clean dry and intact, no significant ecchymosis or swelling Neuro oriented x3, CN's II-XII intact bilaterally, moves all extremities, no focal motor deficits and no sensory deficits noted Neuro Narrative: Decreased movement right lower extremity secondary to pain related to recent fracture and surgery Speech: speech normal Psych affect normal Psych Narrative: Appropriately interactive Weight / BMI Weight Weight: 91.7 kg Body Mass Index (BMI) 32.5 ABG / Lab / Microbiology Data Result Diagrams: 07/02/22 06:17 07/01/22 05:33 Laboratory: Laboratory Results - last 24 hr 07/02/22 06:17: WBC 3.6 L, RBC 2.66 L, Hgb 8.3 L, Hct 25.4 L, MCV 95.5, MCH 31.2, MCHC 32.7, RDW Std Deviation 44.1 H, RDW Coeff of Nia 12.6, Plt Count 177, MPV 10.4, Immature Gran % (Auto) 1.400 H, Neut % (Auto) 57.5, Lymph % (Auto) 23.2, [place] % (Auto) 11.2 H, Eos % (Auto) 6.1 H, Baso % (Auto) 0.6, Absolute Neuts (auto) 2.1, Absolute Lymphs (auto) 0.83, Nucleated RBC % 0 Microbiology: Microbiology 06/30/22 07:00 Urine, Clean Catch Urine Culture - Final Culture exhibits no growth. 06/30/22 05:45 Blood Culture (Wb) - Right Wrist Blood Culture - Preliminary No growth in 48 hours. 06/30/22 05:45 Blood Culture (Wb) - Right Forearm Blood Culture - Preliminary No growth in 48 hours. 06/30/22 07:48 Mucosa - Nasopharyngeal Respiratory Panel (PCR) - Final 06/30/22 07:48 Nasal Secretion SARS-CoV-2 & FLU Antigen (Rapid) - Final 06/28/22 01:20 Urine Catheter - Vargas Urine Culture - Final Pseudomonas aeruginosa D/C Instructions Discharge Diet: Low fat / Low cholesterol Discharge Activity: May Not Drive, May Shower, May Take a Tub Bath (No soaking postoperative incision until cleared by orthopedic surgery) and Use Walker Keep extremity elevated above heart level: Operative Extremity Call your doctor if your incision/area has: Continuous Slow Oozing, Sudden Increased Bleeding, Increased Pain/ Swelling, Increased Redness, Foul Smelling Discharge and Swelling at the incision site Meaningful Use Info Meaningful Use Diagnoses (Choose all that apply): None applicable Discharge Plan Admission Admit Date/Time: 06/27/22 23:46 Primary Reason for Your Visit: Right hip pain after mechanical fall Attending Provider: Pema Rod Primary Care Provider: [facility] Doctor,Out of Consulting Providers: Aric Haque ; Gifty Montalvo ; Alonso Yun Instructions Additional Instructions / Restrictions: Right hip wound care instructions: Maintain surgical dressing until postoperative day #7 then okay to remove and leave open to air if no drainage. If dressing is saturated in the interim, replace with dry sterile dressing and change daily. Okay to shower with waterproof dressing on starting postoperative day #4. Posterior hip precautions right hip Discharge Orders/Prescriptions Prescriptions: New sennosides-docusate sodium [Stool Softener-Stimulant Laxat] 8.6-50 mg Tablet 2 tab PO BID Qty: 0 0RF oxycodone 5 mg Tablet 5 mg PO Q4H PRN PRN (Reason: Pain Score 3-6) 1 Days Qty: 6 0RF enoxaparin 40 mg/0.4 mL Syringe 40 mg subcut DAILY@0600 Qty: 4 0RF Rx Instructions: for 28 days to operatively with stop date 07/24/2022 ciprofloxacin HCl 500 mg Tablet 500 mg PO BID Qty: 2 0RF Continued diphenhydramine HCl 50 mg Capsule 50 mg PO QHS aspirin 81 mg Tablet,Delayed Release (Dr/Ec) 81 mg PO QHS lamotrigine 200 mg tablet 200 mg PO DAILY Label Comments: TAKE 1 TABLET BY MOUTH ONCE DAILY carbamazepine 200 mg tablet 200 mg PO DAILY Label Comments: TAKE 1 TABLET BY MOUTH TWICE DAILY diltiazem HCl 30 mg tablet 30 mg PO BID Label Comments: TAKE 1 TABLET BY MOUTH TWICE DAILY alendronate 35 mg tablet 35 mg PO SA Label Comments: Take 1 tablet by mouth once a week in the morning with a full glass of water, wait 20-30 minutes before eating or taking other medications ramelteon 8 mg tablet 8 mg PO QHS Label Comments: TAKE 1 TABLET BY MOUTH ONCE DAILY AT BEDTIME NEEDED Referrals / Follow Up: Aric Haque DO [Med Staff - Active Staff] - 07/13/22 Care Physician,No Primary [Non-Staff] - [facility] Doctor,Out of [Primary Care Provider] - Within 1 Month Disposition Disposition (needs filled in before D/C Order can be placed): Inpatient Rehab Unit/Facility Charges/Coding Visit Charges Inpatient E&M: 81749 Disch Hosp >30min
[2022-07-02 14:00] VITALS: BP 146/69; PULSE 89; RESP 16; TEMP 37.3; O2SAT 100
--- NOTE | 2022-07-02 15:04 | CASEMGMT ---
Social Work Per Physician pt is ready for discharge today. Discharge orders sent to [facility] via [facility]. Transportation arranged with Physician ambulance for 4:30 pickup via cot. SW met with pt dgt and they are agreeable to discharge plan as stated above. Pt states she will call her and notify. [facility] and bedside nurse notified of discharge time. Disposition: [facility] Inpatient [facility]hab. WM Barclay
[2022-07-02] MEDS: 0.9% Saline Lock 10 ML Syringe IV (15:47)
[2022-07-02] MEDS: Ondansetron 4 MG/2 ML Vial IV (15:47)
--- NOTE | 2022-07-02 16:22 | NURSING ---
REPORT CALLED TO [facility]. PT SCHEDULED TO BE TRANSPORTED AT 3040
== END 2022-07-02 16:58 | DRG 522 ==
LOC: ED 22:25 → MS3 06-28 00:12
PROVIDERS: Internal Medicine; Student in an Organized Health Care Education/Training Program; Admitting Provider Family Medicine; Emergency Provider Emergency Medicine; Visit Provider Internal Medicine
PROC: 0SR90JZ Replacement of Right Hip Joint with Synthetic Substitute, Open Approach (ICD-10-PCS; CPT 27130; principal; 2022-06-28 11:00)
DX: S72.001A Fracture of unspecified part of neck of right femur, initial encounter for closed fracture (principal); N39.0 Urinary tract infection, site not specified; B96.5 Pseudomonas (aeruginosa) (mallei) (pseudomallei) as the cause of diseases classified elsewhere; F39 Unspecified mood [affective] disorder; I10 Essential (primary) hypertension; E87.6 Hypokalemia; W01.0XXA Fall on same level from slipping, tripping and stumbling without subsequent striking against object, initial encounter; E66.9 Obesity, unspecified; Z92.3 Personal history of irradiation; R53.81 Other malaise; Z79.82 Long term (current) use of aspirin; Z79.83 Long term (current) use of bisphosphonates; Z68.34 Body mass index [BMI] 34.0-34.9, adult; M81.0 Age-related osteoporosis without current pathological fracture; Z79.899 Other long term (current) drug therapy; Z92.21 Personal history of antineoplastic chemotherapy; Z85.3 Personal history of malignant neoplasm of breast; Y93.01 Activity, walking, marching and hiking; Y92.34 Swimming pool (public) as the place of occurrence of the external cause; R50.82 Postprocedural fever
CPT/HCPCS: 36415; 71045; 73502; 80048; 80053; 81001; 82728; 83540; 83550; 83735; 85018; 85025; 85045; 85610; 85730; 86850; 86900; 86901; 87040; 87086; 87088; 87184; 87186; 87428; 87633; 88305; 88307; 88311; 93005; 94668; 97110; 97162; 97166; 97530; 97535; 99252; 99285; C1776; J7030; J7050; J7120; A4216; G0463; J2405